=== PATIENT | male | born 1970 | race Caucasian/White ===

== ENCOUNTER 2020-01-14 15:12 | Inpatient (IN) ==
[2020-01-14 16:07] LABS: Basophils # 0.1 K/mcL (0.0-0.2); Basophils % 0.5 %; Eosinophils # 0.2 K/mcL (0.0-0.6); Eosinophils % 1.6 %; Hematocrit 38.2 % (37.5-50.1); Hemoglobin 12.4 g/dL (12.9-16.9); Immature Granulocytes % 0.4 % (0-4); Lymphocytes # 1.2 K/mcL (0.6-4.6); Lymphocytes % 11.5 %; Mean Corpuscular HGB Conc 32.5 g/dL (31.6-35.5); Mean Corpuscular Hemoglobin 30.7 pg (28.0-33.3); Mean Corpuscular Volume 94.6 fL (83.0-100.0); Mean Platelet Volume 10.5 fL (9.4-12.4); Monocytes # 1.4 K/mcL (0.0-1.3); Monocytes % 12.8 %; Neutrophils # 7.8 K/mcL (1.6-8.9); Platelet Count 198 K/mcL (140-400); Red Blood Count 4.04 M/mcL (4.19-5.50); Red Cell Distribution Width 12.2 % (11.5-14.5); Segmented Neutrophils % 73.2 %; White Blood Count 10.6 K/mcL (4.3-11.1)
[2020-01-14 16:18] LABS: Calcium 8.4 mg/dL (8.6-10.3); Potassium 4.7 mEq/L (3.5-5.1)
[2020-01-14] MEDS ORDERED: 0.9 % Sodium Chloride 1,000 ML IVC ONE (17:06)
[2020-01-14] MEDS ORDERED: Piperacillin/Tazobactam 3.375 GM in 0.9 % Sodium Chloride Mini Bag 100 ML IVPB ONE (17:15)
[2020-01-14] MEDS ORDERED: MOM Conc 10 ML UD.LIQ PO PRN (17:21)
[2020-01-14] MEDS ORDERED: *HR* HYDROcodone/Acet 5/325 mg TABLET PO PRN (17:21)
[2020-01-14] MEDS ORDERED: Naloxone 0.4 MG/ML INJ IVP PRN (17:21)
[2020-01-14] MEDS ORDERED: Ondansetron 4 MG/2 ML VIAL IVP PRN (17:21)
[2020-01-14] MEDS ORDERED: Acetaminophen 325 MG TABLET PO PRN (17:21)
[2020-01-14] MEDS ORDERED: Mag Hydrox/Al Hydrox/Simeth 30 ML UDC PO PRN (17:21)
[2020-01-14] MEDS ORDERED: *HR* Dextrose 50 % in Water (Syg) 50 ML SYRINGE IVP PRN (17:25)
[2020-01-14] MEDS ORDERED: Dextrose Gel 15 GM/37.5 ML TUBE PO PRN ×2 (17:25)
[2020-01-14] MEDS ORDERED: D5% in Water 1,000 ML IVC PRN (17:25)
[2020-01-14 18:21] LABS: Estimated Average Glucose 249 mg/dl
[2020-01-14] MEDS ORDERED: 0.9 % Sodium Chloride 1,000 ML IVC SCH (18:30)
[2020-01-14] MEDS: Insulin LISPRO 300 UNITS/3 ML VIAL SQ SCH (21:29)
[2020-01-14] MEDS: Insulin DETEMIR 100 UNIT/ML X5UNITS SQ SCH (21:29)
[2020-01-14] MEDS: diazePAM 10 MG TABLET PO PRN (21:36)
[2020-01-15] MEDS: Piperacillin/Tazobactam 3.375 GM in 0.9 % Sodium Chloride Mini Bag 100 ML IVPB SCH ×4 (00:43→23:40)
[2020-01-15] MEDS: *HR* OxyCODONE/APAP 5/325 TABLET PO PRN ×3 (04:09→20:01)
[2020-01-15] MEDS: *HR* Enoxaparin 30 MG/0.3 ML SYRINGE SQ SCH (05:30)
[2020-01-15] MEDS: Insulin LISPRO 300 UNITS/3 ML VIAL SQ SCH ×4 (07:50→20:11)
[2020-01-15] MEDS: Metoprolol XL (24 HR) Succ 50 MG TAB.ER.24H PO SCH (08:01)
[2020-01-15 08:07] LABS: Hematocrit 35.1 % (37.5-50.1); Hemoglobin 11.6 g/dL (12.9-16.9); Mean Corpuscular Volume 93.9 fL (83.0-100.0); Mean Platelet Volume 10.7 fL (9.4-12.4); Platelet Count 194 K/mcL (140-400); Red Blood Count 3.74 M/mcL (4.19-5.50); Red Cell Distribution Width 12.1 % (11.5-14.5); White Blood Count 9.8 K/mcL (4.3-11.1)
[2020-01-15] MEDS: diazePAM 10 MG TABLET PO PRN ×2 (08:09→20:01)
[2020-01-15] MEDS: Insulin DETEMIR 100 UNIT/ML X5UNITS SQ SCH (08:10)
[2020-01-15 08:25] LABS: Calcium 8.4 mg/dL (8.6-10.3); Potassium 4.2 mEq/L (3.5-5.1)
[2020-01-15] MEDS ORDERED: Ringers Solution, Lactated 1,000 ML IVC SCH (12:30)
[2020-01-15] MEDS ORDERED: Insulin DETEMIR 100 UNIT/ML X5UNITS SQ SCH (21:00)
[2020-01-16] MEDS: *HR* OxyCODONE/APAP 5/325 TABLET PO PRN ×3 (04:31→23:15)
[2020-01-16] MEDS: *HR* Enoxaparin 30 MG/0.3 ML SYRINGE SQ SCH (04:32)
[2020-01-16 07:22] LABS: Basophils % 0.3 %; Eosinophils # 0.3 K/mcL (0.0-0.6); Hematocrit 35.8 % (37.5-50.1); Hemoglobin 11.9 g/dL (12.9-16.9); Immature Granulocytes % 0.5 % (0-4); Lymphocytes # 1.8 K/mcL (0.6-4.6); Lymphocytes % 18.7 %; Mean Corpuscular HGB Conc 33.2 g/dL (31.6-35.5); Mean Corpuscular Hemoglobin 31.2 pg (28.0-33.3); Mean Platelet Volume 10.8 fL (9.4-12.4); Monocytes # 0.9 K/mcL (0.0-1.3); Monocytes % 9.9 %; Neutrophils # 6.3 K/mcL (1.6-8.9); Platelet Count 201 K/mcL (140-400); Red Blood Count 3.81 M/mcL (4.19-5.50); Red Cell Distribution Width 12.1 % (11.5-14.5); Segmented Neutrophils % 67.6 %; White Blood Count 9.4 K/mcL (4.3-11.1)
[2020-01-16 07:42] LABS: BUN/Creatinine Ratio 13 (6-26); Blood Urea Nitrogen 17 mg/dL (6-20); Calcium 8.7 mg/dL (8.6-10.3); Carbon Dioxide 30 mEq/L (23-29); Chloride 102 mEq/L (98-107); Glucose 121 mg/dL (70-105); Osmolality,Calculated 289 (280-300); Potassium 4.3 mEq/L (3.5-5.1); Sodium 138 mEq/L (136-145); eGFR For African Americans > 60 (> 60); eGFR For Non-African Americans 56 (> 60)
[2020-01-16] MEDS: Insulin LISPRO 300 UNITS/3 ML VIAL SQ SCH ×4 (08:41→21:03)
[2020-01-16] MEDS: Piperacillin/Tazobactam 3.375 GM in 0.9 % Sodium Chloride Mini Bag 100 ML IVPB SCH (08:46)
[2020-01-16] MEDS: diazePAM 10 MG TABLET PO PRN ×2 (08:47→21:03)
[2020-01-16] MEDS: Metoprolol XL (24 HR) Succ 50 MG TAB.ER.24H PO SCH (08:47)
[2020-01-16] MEDS: Lisinopril-HCTZ 20-12.5mg TABLET PO SCH (08:47)
[2020-01-16] MEDS ORDERED: Aminoglycoside Consult 1 EACH MC ONE (09:44)
[2020-01-16] MEDS: ceFAZolin 1,000 MG in Water for inj. (sterile) 10 ML IVP SCH ×2 (16:33→23:33)
[2020-01-17 01:47] LABS: Basophils # 0.1 K/mcL (0.0-0.2); Basophils % 0.6 %; Eosinophils # 0.2 K/mcL (0.0-0.6); Eosinophils % 2.4 %; Hematocrit 37.7 % (37.5-50.1); Hemoglobin 12.3 g/dL (12.9-16.9); Immature Granulocytes % 0.5 % (0-4); Lymphocytes # 2.2 K/mcL (0.6-4.6); Lymphocytes % 22.2 %; Mean Corpuscular HGB Conc 32.6 g/dL (31.6-35.5); Mean Corpuscular Hemoglobin 30.7 pg (28.0-33.3); Mean Platelet Volume 10.3 fL (9.4-12.4); Monocytes # 0.9 K/mcL (0.0-1.3); Monocytes % 8.9 %; Neutrophils # 6.3 K/mcL (1.6-8.9); Platelet Count 226 K/mcL (140-400); Red Blood Count 4.01 M/mcL (4.19-5.50); Red Cell Distribution Width 11.9 % (11.5-14.5); Segmented Neutrophils % 65.4 %; White Blood Count 9.7 K/mcL (4.3-11.1)
[2020-01-17 01:51] LABS: INR 1.2
[2020-01-17 02:08] LABS: BUN/Creatinine Ratio 12 (6-26); Blood Urea Nitrogen 18 mg/dL (6-20); Calcium 9.1 mg/dL (8.6-10.3); Carbon Dioxide 33 mEq/L (23-29); Chloride 100 mEq/L (98-107); Glucose 146 mg/dL (70-105); Osmolality,Calculated 293 (280-300); Potassium 4.4 mEq/L (3.5-5.1); Sodium 139 mEq/L (136-145); eGFR For African Americans > 60 (> 60); eGFR For Non-African Americans 50 (> 60)
[2020-01-17] MEDS: *HR* Enoxaparin 30 MG/0.3 ML SYRINGE SQ SCH (05:08)
[2020-01-17] MEDS: *HR* OxyCODONE/APAP 5/325 TABLET PO PRN ×2 (05:17→11:18)
[2020-01-17] MEDS: Metoprolol XL (24 HR) Succ 50 MG TAB.ER.24H PO SCH (07:52)
[2020-01-17] MEDS: Lisinopril-HCTZ 20-12.5mg TABLET PO SCH (07:52)
[2020-01-17] MEDS: Insulin LISPRO 300 UNITS/3 ML VIAL SQ SCH ×4 (07:53→21:28)
[2020-01-17] MEDS: ceFAZolin 1,000 MG in Water for inj. (sterile) 10 ML IVP SCH (08:02)
[2020-01-17] MEDS: ceFAZolin 2,000 MG in 0.9 % Sodium Chloride 100 ML IVPB SCH (15:15)
[2020-01-17] MEDS: diazePAM 10 MG TABLET PO PRN ×2 (15:15→21:30)
[2020-01-18] MEDS: ceFAZolin 2,000 MG in 0.9 % Sodium Chloride 100 ML IVPB SCH ×3 (00:59→16:55)
[2020-01-18] MEDS ORDERED: *HR* Enoxaparin 40 MG/0.4 ML SYRINGE SQ SCH (06:00)
[2020-01-18 06:17] LABS: Basophils # 0.1 K/mcL (0.0-0.2); Basophils % 0.5 %; Eosinophils # 0.3 K/mcL (0.0-0.6); Eosinophils % 2.7 %; Hematocrit 37.1 % (37.5-50.1); Hemoglobin 12.5 g/dL (12.9-16.9); Immature Granulocytes % 0.6 % (0-4); Lymphocytes # 2.2 K/mcL (0.6-4.6); Lymphocytes % 20.6 %; Mean Corpuscular HGB Conc 33.7 g/dL (31.6-35.5); Mean Corpuscular Hemoglobin 31.1 pg (28.0-33.3); Mean Corpuscular Volume 92.3 fL (83.0-100.0); Mean Platelet Volume 10.2 fL (9.4-12.4); Monocytes % 9.5 %; Platelet Count 227 K/mcL (140-400); Red Blood Count 4.02 M/mcL (4.19-5.50); Red Cell Distribution Width 11.8 % (11.5-14.5); Segmented Neutrophils % 66.1 %; White Blood Count 10.6 K/mcL (4.3-11.1)
[2020-01-18 06:49] LABS: BUN/Creatinine Ratio 15 (6-26); Blood Urea Nitrogen 21 mg/dL (6-20); Calcium 8.9 mg/dL (8.6-10.3); Carbon Dioxide 31 mEq/L (23-29); Chloride 97 mEq/L (98-107); Glucose 139 mg/dL (70-105); Osmolality,Calculated 287 (280-300); Potassium 4.4 mEq/L (3.5-5.1); Sodium 136 mEq/L (136-145); eGFR For African Americans > 60 (> 60); eGFR For Non-African Americans 53 (> 60)
[2020-01-18] MEDS: Metoprolol XL (24 HR) Succ 50 MG TAB.ER.24H PO SCH (07:27)
[2020-01-18] MEDS: Lisinopril-HCTZ 20-12.5mg TABLET PO SCH (07:27)
[2020-01-18] MEDS: Insulin LISPRO 300 UNITS/3 ML VIAL SQ SCH ×2 (07:31→16:56)
[2020-01-18] MEDS: *HR* OxyCODONE/APAP 5/325 TABLET PO PRN ×2 (07:32→21:15)
[2020-01-18 08:28] LABS: C-Reactive Protein 144 mg/L (Less than 10)
[2020-01-18] MEDS ORDERED: *HR* Propofol 200 MG/20 ML VIAL IVP ONE ×2 (11:26→12:16)
[2020-01-18] MEDS ORDERED: Lidocaine -MPF 2% 2 ML VIAL ONE (11:26)
[2020-01-18] MEDS ORDERED: Bupivacaine/Clonidine Syringe 20 ML, Syringe LUER-LOK 1 EACH TP ONE (12:00)
[2020-01-18] MEDS ORDERED: Mag Hydrox/Al Hydrox/Simeth 30 ML UDC PO PRN (13:13)
[2020-01-18] MEDS ORDERED: *HR* HYDROcodone/Acet 5/325 mg TABLET PO PRN (13:13)
[2020-01-18] MEDS ORDERED: MOM Conc 10 ML UD.LIQ PO PRN (13:13)
[2020-01-18] MEDS ORDERED: Acetaminophen 325 MG TABLET PO PRN (13:13)
[2020-01-18] MEDS ORDERED: *HR* Dextrose 50 % in Water (Syg) 50 ML SYRINGE IVP PRN (13:13)
[2020-01-18] MEDS ORDERED: Naloxone 0.4 MG/ML INJ IVP PRN (13:13)
[2020-01-18] MEDS ORDERED: Dextrose Gel 15 GM/37.5 ML TUBE PO PRN ×2 (13:13)
[2020-01-18] MEDS ORDERED: Ondansetron 4 MG/2 ML VIAL IVP PRN (13:13)
[2020-01-18] MEDS ORDERED: D5% in Water 1,000 ML IVC PRN (13:13)
[2020-01-18] MEDS: diazePAM 10 MG TABLET PO PRN (21:18)
[2020-01-19] MEDS: Insulin LISPRO 300 UNITS/3 ML VIAL SQ SCH ×5 (00:08→20:28)
[2020-01-19] MEDS: ceFAZolin 2,000 MG in 0.9 % Sodium Chloride 100 ML IVPB SCH ×3 (00:09→15:55)
[2020-01-19 01:15] LABS: Basophils % 0.4 %; Eosinophils # 0.3 K/mcL (0.0-0.6); Hemoglobin 12.1 g/dL (12.9-16.9); Immature Granulocytes % 0.8 % (0-4); Lymphocytes # 1.9 K/mcL (0.6-4.6); Lymphocytes % 19.9 %; Mean Corpuscular HGB Conc 32.7 g/dL (31.6-35.5); Mean Corpuscular Hemoglobin 30.1 pg (28.0-33.3); Mean Platelet Volume 10.5 fL (9.4-12.4); Monocytes # 0.8 K/mcL (0.0-1.3); Monocytes % 7.8 %; Neutrophils # 6.7 K/mcL (1.6-8.9); Platelet Count 257 K/mcL (140-400); Red Blood Count 4.02 M/mcL (4.19-5.50); Red Cell Distribution Width 11.6 % (11.5-14.5); Segmented Neutrophils % 68.1 %; White Blood Count 9.8 K/mcL (4.3-11.1)
[2020-01-19 01:34] LABS: Calcium 8.5 mg/dL (8.6-10.3)
[2020-01-19] MEDS: *HR* Enoxaparin 40 MG/0.4 ML SYRINGE SQ SCH (06:27)
[2020-01-19] MEDS: *HR* OxyCODONE/APAP 5/325 TABLET PO PRN ×2 (08:23→16:01)
[2020-01-19] MEDS: Lisinopril-HCTZ 20-12.5mg TABLET PO SCH (08:23)
[2020-01-19] MEDS: Metoprolol XL (24 HR) Succ 50 MG TAB.ER.24H PO SCH (08:24)
[2020-01-19] MEDS: diazePAM 10 MG TABLET PO PRN ×2 (11:46→21:19)
[2020-01-19] MEDS: metroNIDAZOLE 500 MG TABLET PO SCH ×2 (15:55→20:28)
[2020-01-19] MEDS ORDERED: Insulin DETEMIR 100 UNIT/ML X5UNITS SQ SCH (21:00)
[2020-01-20] MEDS: ceFAZolin 2,000 MG in 0.9 % Sodium Chloride 100 ML IVPB SCH ×3 (00:09→15:12)
[2020-01-20 05:21] LABS: BUN/Creatinine Ratio 18 (6-26); Blood Urea Nitrogen 25 mg/dL (6-20); Calcium 8.8 mg/dL (8.6-10.3); Carbon Dioxide 33 mEq/L (23-29); Chloride 99 mEq/L (98-107); Glucose 193 mg/dL (70-105); Osmolality,Calculated 294 (280-300); Sodium 137 mEq/L (136-145); eGFR For African Americans > 60 (> 60); eGFR For Non-African Americans 54 (> 60)
[2020-01-20] MEDS: *HR* Enoxaparin 40 MG/0.4 ML SYRINGE SQ SCH (05:23)
[2020-01-20] MEDS: *HR* OxyCODONE/APAP 5/325 TABLET PO PRN ×2 (05:24→07:48)
[2020-01-20] MEDS: metroNIDAZOLE 500 MG TABLET PO SCH ×3 (07:34→20:41)
[2020-01-20] MEDS: Insulin LISPRO 300 UNITS/3 ML VIAL SQ SCH ×4 (07:34→20:13)
[2020-01-20] MEDS: Lisinopril-HCTZ 20-12.5mg TABLET PO SCH (07:34)
[2020-01-20] MEDS: Metoprolol XL (24 HR) Succ 50 MG TAB.ER.24H PO SCH (07:35)
[2020-01-20] MEDS: diazePAM 10 MG TABLET PO PRN ×2 (07:39→19:32)
[2020-01-20] MEDS: *HR* OxyCODONE/APAP 10/325 TABLET PO PRN (17:05)
[2020-01-20] MEDS ORDERED: Insulin DETEMIR 100 UNIT/ML X5UNITS SQ SCH (21:00)
[2020-01-21] MEDS: ceFAZolin 2,000 MG in 0.9 % Sodium Chloride 100 ML IVPB SCH ×2 (00:15→07:49)
[2020-01-21] MEDS: *HR* OxyCODONE/APAP 10/325 TABLET PO PRN (03:22)
[2020-01-21 05:13] LABS: BUN/Creatinine Ratio 25 (6-26); Blood Urea Nitrogen 35 mg/dL (6-20); Calcium 8.7 mg/dL (8.6-10.3); Carbon Dioxide 32 mEq/L (23-29); Chloride 99 mEq/L (98-107); Glucose 160 mg/dL (70-105); Osmolality,Calculated 295 (280-300); Sodium 137 mEq/L (136-145); eGFR For African Americans > 60 (> 60); eGFR For Non-African Americans 54 (> 60)
[2020-01-21] MEDS: *HR* Enoxaparin 40 MG/0.4 ML SYRINGE SQ SCH (06:04)
[2020-01-21 06:36] VITALS: BP 125/76
[2020-01-21] MEDS: Metoprolol XL (24 HR) Succ 50 MG TAB.ER.24H PO SCH (07:49)
[2020-01-21] MEDS: Lisinopril-HCTZ 20-12.5mg TABLET PO SCH (07:49)
[2020-01-21] MEDS: metroNIDAZOLE 500 MG TABLET PO SCH (07:49)
[2020-01-21] MEDS: Insulin LISPRO 300 UNITS/3 ML VIAL SQ SCH (07:49)
[2020-01-21] MEDS: diazePAM 10 MG TABLET PO PRN (08:03)
[2020-01-21] MEDS ORDERED: *HR* OxyCODONE/APAP 10/325 TABLET PO PRN (10:02)
== END 2020-01-21 11:59 | disposition home health service (06) | DRG 623 ==
LOC: EMEROOARM 15:12 → 3ANU 15:12 → SUATTDRO 17:24 → 3ANU 17:49
PROVIDERS: ADMIT Student in an Organized Health Care Education/Training Program; ATTEND Internal Medicine

== ENCOUNTER 2021-02-27 13:34 | Inpatient (IN) ==
[2021-02-27] MEDS ORDERED: Piperacillin/Tazobactam 3.375 GM in Water for inj. (sterile) 20 ML IVP ONE (14:13)
[2021-02-27] MEDS ORDERED: Ondansetron 4 MG/2 ML VIAL IVP ONE (14:13)
[2021-02-27] MEDS ORDERED: 0.9 % Sodium Chloride 1,000 ML IVC ONE (14:13)
[2021-02-27] MEDS ORDERED: Morphine Sulfate 2 MG/ML SYRINGE IVP ONE (14:13)
[2021-02-27] MEDS ORDERED: Vancomycin 1,500 MG/265 ML IV.SOLN IVPB ONE (14:13)
[2021-02-27 14:38] LABS: Basophils % 0.4 %; Eosinophils # 0.3 K/mcL (0.0-0.6); Eosinophils % 2.4 %; Hematocrit 39.6 % (37.5-50.1); Immature Granulocytes % 0.4 % (0-4); Lymphocytes # 1.8 K/mcL (0.6-4.6); Mean Corpuscular HGB Conc 32.8 g/dL (31.6-35.5); Mean Corpuscular Hemoglobin 30.2 pg (28.0-33.3); Mean Corpuscular Volume 92.1 fL (83.0-100.0); Mean Platelet Volume 10.7 fL (9.4-12.4); Monocytes % 9.1 %; Platelet Count 207 K/mcL (140-400); Red Cell Distribution Width 12.4 % (11.5-14.5); Segmented Neutrophils % 71.7 %; White Blood Count 11.2 K/mcL (4.3-11.1)
[2021-02-27 14:57] LABS: Albumin 3.7 g/dL (3.5-5.7); Albumin/Globulin Ratio 1.1 (1.1-2.2); Bilirubin,Total 0.3 mg/dL (0.3-1.0); Calcium 8.9 mg/dL (8.6-10.3); Globulin 3.5 g/dL (2.4-3.5); Potassium 4.4 mEq/L (3.5-5.1); Total Protein 7.2 g/dL (6.4-8.9)
[2021-02-27] MEDS ORDERED: diazePAM 5 MG TABLET PO ONE (15:28)
[2021-02-27] MEDS ORDERED: Ondansetron ODT 4 MG TAB.RAPDIS SL PRN (15:59)
[2021-02-27] MEDS ORDERED: Dextrose Gel 15 GM/37.5 ML TUBE PO PRN ×2 (15:59)
[2021-02-27] MEDS ORDERED: *HR* Dextrose 50 % in Water (Vial) 50 ML VIAL IVP PRN (15:59)
[2021-02-27] MEDS ORDERED: Naloxone 0.4 MG/ML INJ IVP PRN (15:59)
[2021-02-27] MEDS ORDERED: Mag Hydrox/Al Hydrox/Simeth 30 ML UDC PO PRN (15:59)
[2021-02-27] MEDS ORDERED: Acetaminophen 325 MG TABLET PO PRN (15:59)
[2021-02-27] MEDS ORDERED: MOM Conc 10 ML UD.LIQ PO PRN (15:59)
[2021-02-27] MEDS ORDERED: D5% in Water 1,000 ML IVC PRN (15:59)
[2021-02-27] MEDS: Insulin LISPRO 300 UNITS/3 ML VIAL SUBQ SCH ×2 (18:37→20:32)
[2021-02-27] MEDS ORDERED: Nitroglycerin 0.4 MG TAB.SUBL SL PRN (21:32)
[2021-02-27] MEDS: diazePAM 10 MG TABLET PO PRN (22:19)
[2021-02-28] MEDS: Piperacillin/Tazobactam 3.375 GM in 0.9 % Sodium Chloride Mini Bag 100 ML IVPB SCH ×4 (00:10→23:16)
[2021-02-28 05:15] LABS: Hemoglobin 12.3 g/dL (12.9-16.9); Mean Corpuscular HGB Conc 34.2 g/dL (31.6-35.5); Mean Corpuscular Hemoglobin 31.2 pg (28.0-33.3); Mean Corpuscular Volume 91.4 fL (83.0-100.0); Mean Platelet Volume 10.9 fL (9.4-12.4); Platelet Count 179 K/mcL (140-400); Red Blood Count 3.94 M/mcL (4.19-5.50); Red Cell Distribution Width 12.2 % (11.5-14.5); White Blood Count 6.8 K/mcL (4.3-11.1)
[2021-02-28 05:36] LABS: Calcium 8.5 mg/dL (8.6-10.3); Magnesium 1.8 mg/dL (1.6-2.6); Potassium 3.9 mEq/L (3.5-5.1)
[2021-02-28] MEDS: *HR* Enoxaparin 40 MG/0.4 ML SYRINGE SQ SCH (06:18)
[2021-02-28] MEDS: Insulin LISPRO 300 UNITS/3 ML VIAL SUBQ SCH ×4 (08:00→21:24)
[2021-02-28] MEDS: Gabapentin 300 MG CAPSULE PO SCH ×2 (08:06→21:20)
[2021-02-28] MEDS: Aspirin Enteric Coated 81 MG Tablet PO SCH (08:06)
[2021-02-28] MEDS: Metoprolol XL (24 HR) Succ 50 MG TAB.ER.24H PO SCH (08:06)
[2021-02-28] MEDS: diazePAM 10 MG TABLET PO PRN ×2 (10:39→17:34)
[2021-02-28 11:54] LABS: Estimated Average Glucose 269 mg/dl
[2021-02-28] MEDS ORDERED: Vancomycin 1,500 MG/265 ML IV.SOLN IVPB SCH (15:00)
[2021-03-01 02:23] LABS: Adenovirus Not Detected (Not Detect); Coronavirus 229E Not Detected (Not Detect); Coronavirus HKU1 Not Detected (Not Detect); Coronavirus NL63 Not Detected (Not Detect); Coronavirus OC43 Not Detected (Not Detect); Human Metapneumovirus Not Detected (Not Detect); Human Rhinovirus/Enterovirus Not Detected (Not Detect); Influenza A Subtype 2009 H1 Not Detected (Not Detect); Influenza B Not Detected (Not Detect); Parainfluenza Virus 1 Not Detected (Not Detect); Parainfluenza Virus 2 Not Detected (Not Detect); Parainfluenza Virus 3 Not Detected (Not Detect); Parainfluenza Virus 4 Not Detected (Not Detect); Respiratory Syncytial Virus Not Detected (Not Detect); SARS-CoV-2 Not Detected (Not Detect)
[2021-03-01 02:24] LABS: Bordetella Pertussis Not Detected (Not Detect); Chlamydophila pneumoniae Not Detected (Not Detect); Mycoplasma pneumoniae Not Detected (Not Detect)
[2021-03-01 05:29] LABS: Basophils % 0.4 %; Eosinophils # 0.3 K/mcL (0.0-0.6); Eosinophils % 3.8 %; Hematocrit 35.2 % (37.5-50.1); Immature Granulocytes % 0.3 % (0-4); Lymphocytes # 2.1 K/mcL (0.6-4.6); Mean Corpuscular HGB Conc 34.1 g/dL (31.6-35.5); Mean Corpuscular Hemoglobin 31.1 pg (28.0-33.3); Mean Corpuscular Volume 91.2 fL (83.0-100.0); Mean Platelet Volume 10.8 fL (9.4-12.4); Monocytes # 0.6 K/mcL (0.0-1.3); Monocytes % 8.5 %; Neutrophils # 3.9 K/mcL (1.6-8.9); Platelet Count 191 K/mcL (140-400); Red Blood Count 3.86 M/mcL (4.19-5.50); Red Cell Distribution Width 12.1 % (11.5-14.5); White Blood Count 6.9 K/mcL (4.3-11.1)
[2021-03-01 05:50] LABS: Calcium 8.6 mg/dL (8.6-10.3); Potassium 4.1 mEq/L (3.5-5.1)
[2021-03-01] MEDS: Piperacillin/Tazobactam 3.375 GM in 0.9 % Sodium Chloride Mini Bag 100 ML IVPB SCH ×3 (08:20→23:32)
[2021-03-01] MEDS: Metoprolol XL (24 HR) Succ 50 MG TAB.ER.24H PO SCH (08:23)
[2021-03-01] MEDS: Aspirin Enteric Coated 81 MG Tablet PO SCH (08:23)
[2021-03-01] MEDS: Gabapentin 300 MG CAPSULE PO SCH ×2 (08:23→21:12)
[2021-03-01] MEDS: Insulin LISPRO 300 UNITS/3 ML VIAL SUBQ SCH ×3 (08:25→21:19)
[2021-03-01] MEDS ORDERED: Bupivacaine/Clonidine Syringe 20 ML, Syringe LUER-LOK 1 EACH TP ONE (12:10)
[2021-03-01] MEDS ORDERED: *HR* Propofol 200 MG/20 ML VIAL IVP ONE (12:41)
[2021-03-01] MEDS ORDERED: *HR* Midazolam HCl 2 MG/2 ML VIAL ONE (12:41)
[2021-03-01] MEDS ORDERED: Lidocaine -MPF 2% 2 ML VIAL ONE (12:41)
[2021-03-01] MEDS ORDERED: *HR* FentaNYL (PF) 100 MCG/2 ML VIAL ONE (12:41)
[2021-03-01] MEDS ORDERED: Ondansetron 4 MG/2 ML VIAL ONE (13:27)
[2021-03-01] MEDS ORDERED: *HR* Dextrose 50 % in Water (Vial) 50 ML VIAL IVP PRN ×2 (14:03→14:10)
[2021-03-01] MEDS ORDERED: MOM Conc 10 ML UD.LIQ PO PRN ×2 (14:03→14:10)
[2021-03-01] MEDS ORDERED: Mag Hydrox/Al Hydrox/Simeth 30 ML UDC PO PRN ×2 (14:03→14:10)
[2021-03-01] MEDS ORDERED: Ondansetron ODT 4 MG TAB.RAPDIS SL PRN ×2 (14:03→14:10)
[2021-03-01] MEDS ORDERED: Naloxone 0.4 MG/ML INJ IVP PRN ×2 (14:03→14:10)
[2021-03-01] MEDS ORDERED: Dextrose Gel 15 GM/37.5 ML TUBE PO PRN ×4 (14:03→14:10)
[2021-03-01] MEDS ORDERED: D5% in Water 1,000 ML IVC PRN ×2 (14:03→14:10)
[2021-03-01] MEDS ORDERED: Nitroglycerin 0.4 MG TAB.SUBL SL PRN ×2 (14:03→14:10)
[2021-03-01] MEDS ORDERED: Acetaminophen 325 MG TABLET PO PRN (14:03)
[2021-03-01] MEDS ORDERED: diazePAM 10 MG TABLET PO PRN (14:03)
[2021-03-01] MEDS ORDERED: Piperacillin/Tazobactam 3.375 GM in 0.9 % Sodium Chloride Mini Bag 100 ML IVPB SCH (15:00)
[2021-03-01] MEDS ORDERED: Vancomycin 1,500 MG/265 ML IV.SOLN IVPB SCH ×2 (15:00)
[2021-03-01] MEDS: diazePAM 10 MG TABLET PO PRN (16:10)
[2021-03-01] MEDS ORDERED: Insulin LISPRO 300 UNITS/3 ML VIAL SUBQ SCH ×2 (16:30→21:00)
[2021-03-01] MEDS: Vancomycin 1,750 MG/517.5 ML IV.SOLN IVPB SCH (16:55)
[2021-03-01] MEDS ORDERED: Gabapentin 300 MG CAPSULE PO SCH (21:00)
[2021-03-01] MEDS: Insulin DETEMIR 100 UNIT/ML X5UNITS SUBQ SCH (21:15)
[2021-03-02] MEDS: diazePAM 10 MG TABLET PO PRN ×3 (00:22→21:56)
[2021-03-02] MEDS ORDERED: *HR* Enoxaparin 40 MG/0.4 ML SYRINGE SQ SCH (07:00)
[2021-03-02 07:23] LABS: Basophils % 0.3 %; Eosinophils # 0.2 K/mcL (0.0-0.6); Eosinophils % 1.9 %; Hematocrit 37.7 % (37.5-50.1); Hemoglobin 12.6 g/dL (12.9-16.9); Immature Granulocytes % 0.4 % (0-4); Lymphocytes # 2.2 K/mcL (0.6-4.6); Lymphocytes % 20.6 %; Mean Corpuscular HGB Conc 33.4 g/dL (31.6-35.5); Mean Corpuscular Hemoglobin 30.1 pg (28.0-33.3); Mean Corpuscular Volume 90.2 fL (83.0-100.0); Mean Platelet Volume 10.4 fL (9.4-12.4); Monocytes # 0.8 K/mcL (0.0-1.3); Monocytes % 7.2 %; Neutrophils # 7.5 K/mcL (1.6-8.9); Platelet Count 213 K/mcL (140-400); Red Blood Count 4.18 M/mcL (4.19-5.50); Red Cell Distribution Width 11.8 % (11.5-14.5); Segmented Neutrophils % 69.6 %
[2021-03-02 07:24] LABS: White Blood Count 10.8 K/mcL (4.3-11.1)
[2021-03-02] MEDS: Piperacillin/Tazobactam 3.375 GM in 0.9 % Sodium Chloride Mini Bag 100 ML IVPB SCH ×3 (07:36→21:57)
[2021-03-02 07:37] LABS: Prothrombin Time 12.1 Seconds (9.4-12.1)
[2021-03-02] MEDS: *HR* Enoxaparin 40 MG/0.4 ML SYRINGE SQ SCH ×2 (07:37→15:47)
[2021-03-02 07:39] LABS: Activated Partial Thrombo Time 28.4 Seconds (26.0-36.0)
[2021-03-02] MEDS: Insulin LISPRO 300 UNITS/3 ML VIAL SUBQ SCH ×5 (07:39→22:16)
[2021-03-02 07:44] LABS: BUN/Creatinine Ratio 15 (6-26); Blood Urea Nitrogen 22 mg/dL (6-20); Calcium 8.9 mg/dL (8.6-10.3); Carbon Dioxide 32 mEq/L (23-29); Chloride 102 mEq/L (98-107); Glucose 170 mg/dL (70-105); Osmolality,Calculated 297 (280-300); Potassium 4.1 mEq/L (3.5-5.1); Sodium 140 mEq/L (136-145); eGFR For African Americans > 60 (> 60); eGFR For Non-African Americans 50 (> 60)
[2021-03-02] MEDS: Aspirin Enteric Coated 81 MG Tablet PO SCH (08:08)
[2021-03-02] MEDS: Gabapentin 300 MG CAPSULE PO SCH ×2 (08:11→21:56)
[2021-03-02] MEDS: Insulin DETEMIR 100 UNIT/ML X5UNITS SUBQ SCH ×2 (08:12→21:56)
[2021-03-02] MEDS: Metoprolol XL (24 HR) Succ 50 MG TAB.ER.24H PO SCH (08:12)
[2021-03-02] MEDS ORDERED: Metoprolol XL (24 HR) Succ 50 MG TAB.ER.24H PO SCH (09:00)
[2021-03-02] MEDS ORDERED: Aspirin Enteric Coated 81 MG Tablet PO SCH (09:00)
[2021-03-02] MEDS: 0.9 % Sodium Chloride 1,000 ML IVC SCH ×3 (09:15→22:13)
[2021-03-02] MEDS ORDERED: *HR* Heparin 10,000 UNIT/10 ML VIAL ONE (13:58)
[2021-03-02] MEDS ORDERED: *HR* Midazolam HCl 2 MG/2 ML VIAL ONE (13:58)
[2021-03-02] MEDS ORDERED: *HR* FentaNYL (PF) 100 MCG/2 ML VIAL ONE (13:58)
[2021-03-02] MEDS ORDERED: Isovue-300 200 mL Infus..BTL ONE (13:59)
[2021-03-02] MEDS ORDERED: Heparin 1,000 UNITS/500 mL 500 ML ONE (13:59)
[2021-03-02] MEDS ORDERED: 0.9 % Sodium Chloride 2,000 ML ONE (13:59)
[2021-03-02] MEDS ORDERED: Ondansetron 4 MG/2 ML VIAL IVP PRN (15:38)
[2021-03-02] MEDS ORDERED: *HR* HYDROcodone/Acet 5/325 mg TABLET PO PRN (15:38)
[2021-03-02] MEDS: Vancomycin 1,750 MG/517.5 ML IV.SOLN IVPB SCH (16:11)
[2021-03-02] MEDS ORDERED: *HR* Atropine Sulfate 1 MG/10 ML SYRINGE ONE (17:58)
[2021-03-03 01:36] LABS: Basophils % 0.5 %; Eosinophils # 0.3 K/mcL (0.0-0.6); Eosinophils % 3.2 %; Hematocrit 38.3 % (37.5-50.1); Immature Granulocytes % 0.4 % (0-4); Lymphocytes # 2.1 K/mcL (0.6-4.6); Lymphocytes % 24.8 %; Mean Corpuscular HGB Conc 33.9 g/dL (31.6-35.5); Mean Corpuscular Hemoglobin 30.9 pg (28.0-33.3); Mean Platelet Volume 10.7 fL (9.4-12.4); Monocytes # 0.6 K/mcL (0.0-1.3); Monocytes % 6.9 %; Neutrophils # 5.5 K/mcL (1.6-8.9); Platelet Count 192 K/mcL (140-400); Red Blood Count 4.21 M/mcL (4.19-5.50); Red Cell Distribution Width 12.2 % (11.5-14.5); Segmented Neutrophils % 64.2 %; White Blood Count 8.6 K/mcL (4.3-11.1)
[2021-03-03 01:57] LABS: BUN/Creatinine Ratio 15 (6-26); Blood Urea Nitrogen 18 mg/dL (6-20); Calcium 8.5 mg/dL (8.6-10.3); Carbon Dioxide 27 mEq/L (23-29); Chloride 106 mEq/L (98-107); Glucose 212 mg/dL (70-105); Osmolality,Calculated 298 (280-300); Potassium 3.7 mEq/L (3.5-5.1); Sodium 140 mEq/L (136-145); eGFR For African Americans > 60 (> 60); eGFR For Non-African Americans > 60 (> 60)
[2021-03-03] MEDS: *HR* Enoxaparin 40 MG/0.4 ML SYRINGE SQ SCH (06:11)
[2021-03-03] MEDS: Piperacillin/Tazobactam 3.375 GM in 0.9 % Sodium Chloride Mini Bag 100 ML IVPB SCH (06:13)
[2021-03-03] MEDS: Aspirin Enteric Coated 81 MG Tablet PO SCH (08:43)
[2021-03-03] MEDS: Gabapentin 300 MG CAPSULE PO SCH ×2 (08:44→20:16)
[2021-03-03] MEDS: Metoprolol XL (24 HR) Succ 50 MG TAB.ER.24H PO SCH (08:44)
[2021-03-03] MEDS: Insulin LISPRO 300 UNITS/3 ML VIAL SUBQ SCH ×4 (08:49→20:21)
[2021-03-03] MEDS: Insulin DETEMIR 100 UNIT/ML X5UNITS SUBQ SCH ×2 (08:49→20:16)
[2021-03-03] MEDS: diazePAM 10 MG TABLET PO PRN ×2 (11:26→20:16)
[2021-03-03] MEDS: 0.9 % Sodium Chloride 1,000 ML IVC SCH ×2 (11:28→18:04)
[2021-03-03] MEDS: MetroNIDAZOLE 500 MG/100 ML 500 MG/100 ML BAG IVPB SCH ×2 (16:27→23:01)
[2021-03-03] MEDS: Vancomycin 1,500 MG/265 ML IV.SOLN IVPB SCH (18:05)
[2021-03-03] MEDS: Vancomycin 1,750 MG/517.5 ML IV.SOLN IVPB SCH (19:51)
[2021-03-03] MEDS: cilostazoL 100 MG TABLET PO SCH (20:16)
[2021-03-04] MEDS: Vancomycin 1,500 MG/265 ML IV.SOLN IVPB SCH (04:38)
[2021-03-04 06:05] LABS: Basophils % 0.5 %; Eosinophils # 0.2 K/mcL (0.0-0.6); Eosinophils % 3.1 %; Hematocrit 31.7 % (37.5-50.1); Immature Granulocytes % 0.3 % (0-4); Lymphocytes # 2.6 K/mcL (0.6-4.6); Lymphocytes % 34.2 %; Mean Corpuscular HGB Conc 32.8 g/dL (31.6-35.5); Mean Corpuscular Volume 91.4 fL (83.0-100.0); Mean Platelet Volume 10.3 fL (9.4-12.4); Monocytes # 0.6 K/mcL (0.0-1.3); Monocytes % 8.6 %; Platelet Count 173 K/mcL (140-400); Red Blood Count 3.47 M/mcL (4.19-5.50); Red Cell Distribution Width 12.3 % (11.5-14.5); Segmented Neutrophils % 53.3 %; White Blood Count 7.5 K/mcL (4.3-11.1)
[2021-03-04 06:07] LABS: Hemoglobin 10.4 g/dL (12.9-16.9)
[2021-03-04] MEDS: *HR* Enoxaparin 40 MG/0.4 ML SYRINGE SQ SCH (06:08)
[2021-03-04 06:24] LABS: BUN/Creatinine Ratio 14 (6-26); Blood Urea Nitrogen 17 mg/dL (6-20); Calcium 8.2 mg/dL (8.6-10.3); Carbon Dioxide 29 mEq/L (23-29); Chloride 107 mEq/L (98-107); Glucose 92 mg/dL (70-105); Osmolality,Calculated 287 (280-300); Potassium 3.7 mEq/L (3.5-5.1); Sodium 138 mEq/L (136-145); eGFR For African Americans > 60 (> 60); eGFR For Non-African Americans > 60 (> 60)
[2021-03-04] MEDS: 0.9 % Sodium Chloride 1,000 ML IVC SCH ×3 (06:28→17:13)
[2021-03-04] MEDS: Insulin LISPRO 300 UNITS/3 ML VIAL SUBQ SCH ×4 (08:32→20:18)
[2021-03-04] MEDS: cilostazoL 100 MG TABLET PO SCH ×2 (08:42→20:27)
[2021-03-04] MEDS: MetroNIDAZOLE 500 MG/100 ML 500 MG/100 ML BAG IVPB SCH ×2 (08:42→15:20)
[2021-03-04] MEDS: diazePAM 10 MG TABLET PO PRN ×2 (08:42→17:14)
[2021-03-04] MEDS: Gabapentin 300 MG CAPSULE PO SCH ×2 (08:42→20:27)
[2021-03-04] MEDS: Insulin DETEMIR 100 UNIT/ML X5UNITS SUBQ SCH ×2 (08:42→20:27)
[2021-03-04] MEDS: Metoprolol XL (24 HR) Succ 50 MG TAB.ER.24H PO SCH (08:42)
[2021-03-04] MEDS: Aspirin Enteric Coated 81 MG Tablet PO SCH (08:42)
[2021-03-04] MEDS: Acetaminophen 325 MG TABLET PO PRN (20:29)
[2021-03-05] MEDS: diazePAM 10 MG TABLET PO PRN (01:20)
[2021-03-05] MEDS: 0.9 % Sodium Chloride 1,000 ML IVC SCH ×2 (03:05→07:29)
[2021-03-05] MEDS: Acetaminophen 325 MG TABLET PO PRN (04:06)
[2021-03-05 05:30] LABS: Basophils % 0.4 %; Eosinophils # 0.3 K/mcL (0.0-0.6); Eosinophils % 4.1 %; Hematocrit 31.1 % (37.5-50.1); Hemoglobin 10.5 g/dL (12.9-16.9); Immature Granulocytes % 0.4 % (0-4); Lymphocytes # 1.8 K/mcL (0.6-4.6); Lymphocytes % 24.5 %; Mean Corpuscular HGB Conc 33.8 g/dL (31.6-35.5); Mean Corpuscular Hemoglobin 30.3 pg (28.0-33.3); Mean Corpuscular Volume 89.6 fL (83.0-100.0); Mean Platelet Volume 10.1 fL (9.4-12.4); Monocytes # 0.7 K/mcL (0.0-1.3); Monocytes % 9.1 %; Neutrophils # 4.5 K/mcL (1.6-8.9); Platelet Count 185 K/mcL (140-400); Red Blood Count 3.47 M/mcL (4.19-5.50); Red Cell Distribution Width 12.1 % (11.5-14.5); Segmented Neutrophils % 61.5 %; White Blood Count 7.4 K/mcL (4.3-11.1)
[2021-03-05 05:51] LABS: BUN/Creatinine Ratio 14 (6-26); Blood Urea Nitrogen 17 mg/dL (6-20); Carbon Dioxide 28 mEq/L (23-29); Chloride 107 mEq/L (98-107); Glucose 121 mg/dL (70-105); Osmolality,Calculated 293 (280-300); Potassium 3.7 mEq/L (3.5-5.1); Sodium 140 mEq/L (136-145); eGFR For African Americans > 60 (> 60); eGFR For Non-African Americans > 60 (> 60)
[2021-03-05 07:06] VITALS: BP 167/82
[2021-03-05] MEDS: Insulin LISPRO 300 UNITS/3 ML VIAL SUBQ SCH (07:17)
[2021-03-05] MEDS: cilostazoL 100 MG TABLET PO SCH (08:15)
[2021-03-05] MEDS: *HR* Enoxaparin 40 MG/0.4 ML SYRINGE SQ SCH (08:15)
[2021-03-05] MEDS: Insulin DETEMIR 100 UNIT/ML X5UNITS SUBQ SCH (08:15)
[2021-03-05] MEDS: Aspirin Enteric Coated 81 MG Tablet PO SCH (08:15)
[2021-03-05] MEDS: Metoprolol XL (24 HR) Succ 50 MG TAB.ER.24H PO SCH (08:15)
[2021-03-05] MEDS: Gabapentin 300 MG CAPSULE PO SCH (08:15)
== END 2021-03-05 10:50 | disposition home or self-care (01) | DRG 630 ==
LOC: EMEROOARM 13:34 → 3ANU 16:18 → SUATTDRO 16:18 → 3ANU 17:16 → 2NNU 03-02 14:41 → 2ANU 03-04 19:05
PROVIDERS: ADMIT Internal Medicine; ATTEND Internal Medicine

== ENCOUNTER 2021-04-25 14:00 | Inpatient (IN) ==
[2021-04-25] MEDS ORDERED: 0.9 % Sodium Chloride 1,000 ML IVC SCH (14:45)
[2021-04-25 14:51] LABS: Basophils # 0.1 K/mcL (0.0-0.2); Basophils % 0.5 %; Eosinophils # 0.2 K/mcL (0.0-0.6); Eosinophils % 1.9 %; Hematocrit 39.7 % (37.5-50.1); Immature Granulocytes % 0.3 % (0-4); Lymphocytes % 21.6 %; Mean Corpuscular HGB Conc 32.7 g/dL (31.6-35.5); Mean Corpuscular Hemoglobin 30.7 pg (28.0-33.3); Mean Corpuscular Volume 93.6 fL (83.0-100.0); Mean Platelet Volume 10.7 fL (9.4-12.4); Monocytes # 1.2 K/mcL (0.0-1.3); Monocytes % 12.9 %; Neutrophils # 5.7 K/mcL (1.6-8.9); Platelet Count 177 K/mcL (140-400); Red Blood Count 4.24 M/mcL (4.19-5.50); Segmented Neutrophils % 62.8 %; White Blood Count 9.1 K/mcL (4.3-11.1)
[2021-04-25] MEDS ORDERED: *HR* HYDROmorphone (PF) 1 MG/ML SYRINGE IVP PRN (14:57)
[2021-04-25] MEDS ORDERED: CEFTRIAXONE IN IS-OSM DEXTROSE 1 GM/50 ML PIGGYBACK IV SCH (15:00)
[2021-04-25] MEDS ORDERED: cefTRIAXone 2,000 MG in Water for inj. (sterile) 20 ML IVP ONE (15:00)
[2021-04-25] MEDS ORDERED: Vancomycin 2,000 MG/520 ML IV.SOLN IVPB ONE (15:00)
[2021-04-25 15:20] LABS: Alanine Aminotransferase 14 Units/L (7-52); Albumin 3.8 g/dL (3.5-5.7); Albumin/Globulin Ratio 1.1 (1.1-2.2); Alkaline Phosphatase 83 Units/L (34-104); Aspartate Amino Transferase 14 Units/L (13-39); BUN/Creatinine Ratio 19 (6-26); Bilirubin,Total 0.3 mg/dL (0.3-1.0); Blood Urea Nitrogen 28 mg/dL (6-20); C-Reactive Protein 48 mg/L (Less than 10); Calcium 9.3 mg/dL (8.6-10.3); Carbon Dioxide 32 mEq/L (23-29); Chloride 98 mEq/L (98-107); Globulin 3.6 g/dL (2.4-3.5); Glucose 144 mg/dL (70-105); Osmolality,Calculated 290 (280-300); Potassium 4.3 mEq/L (3.5-5.1); Sodium 136 mEq/L (136-145); Total Protein 7.4 g/dL (6.4-8.9); eGFR For African Americans > 60 (> 60); eGFR For Non-African Americans 50 (> 60)
[2021-04-25] MEDS ORDERED: Ondansetron 4 MG/2 ML VIAL IVP PRN (17:09)
[2021-04-25] MEDS ORDERED: Naloxone 0.4 MG/ML INJ IVP PRN (17:09)
[2021-04-25] MEDS ORDERED: Acetaminophen 325 MG TABLET PO PRN (17:09)
[2021-04-25] MEDS ORDERED: Melatonin 3 MG TABLET PO PRN (17:09)
[2021-04-25] MEDS ORDERED: Mag Hydrox/Al Hydrox/Simeth 30 ML UDC PO PRN (17:09)
[2021-04-25] MEDS ORDERED: *HR* Dextrose 50 % in Water (Vial) 50 ML VIAL IVP PRN (17:16)
[2021-04-25] MEDS ORDERED: Dextrose Gel 15 GM/37.5 ML TUBE PO PRN ×2 (17:16)
[2021-04-25] MEDS ORDERED: D5% in Water 1,000 ML IVC PRN (17:16)
[2021-04-25] MEDS: *HR* OxyCODONE Immed Rel 5 MG TABLET PO PRN (18:07)
[2021-04-25] MEDS: Insulin LISPRO 300 UNITS/3 ML VIAL SUBQ SCH ×2 (18:08→21:08)
[2021-04-25] MEDS: Lactobacillus 1 EACH CAP.SPRINK PO SCH (20:38)
[2021-04-25] MEDS: cilostazoL 100 MG TABLET PO SCH (20:38)
[2021-04-25] MEDS: *HR* HYDROcodone/Acet 5/325 mg TABLET PO PRN (20:43)
[2021-04-25] MEDS: ALPRAZolam 1 MG TABLET PO SCH (21:06)
[2021-04-25] MEDS: Insulin DETEMIR 100 UNIT/ML X5UNITS SUBQ SCH (21:06)
[2021-04-26 02:48] LABS: Basophils # 0.1 K/mcL (0.0-0.2); Basophils % 0.7 %; Eosinophils # 0.3 K/mcL (0.0-0.6); Eosinophils % 3.5 %; Hematocrit 35.9 % (37.5-50.1); Hemoglobin 11.7 g/dL (12.9-16.9); Immature Granulocytes % 0.3 % (0-4); Lymphocytes # 1.8 K/mcL (0.6-4.6); Lymphocytes % 25.5 %; Mean Corpuscular HGB Conc 32.6 g/dL (31.6-35.5); Mean Corpuscular Hemoglobin 30.6 pg (28.0-33.3); Mean Platelet Volume 10.6 fL (9.4-12.4); Monocytes # 1.1 K/mcL (0.0-1.3); Monocytes % 15.8 %; Neutrophils # 3.8 K/mcL (1.6-8.9); Platelet Count 159 K/mcL (140-400); Red Blood Count 3.82 M/mcL (4.19-5.50); Red Cell Distribution Width 12.9 % (11.5-14.5); Segmented Neutrophils % 54.2 %; White Blood Count 7.1 K/mcL (4.3-11.1)
[2021-04-26 02:57] LABS: Prothrombin Time 12.1 Seconds (9.4-12.1)
[2021-04-26 03:07] LABS: BUN/Creatinine Ratio 18 (6-26); Blood Urea Nitrogen 25 mg/dL (6-20); Calcium 8.7 mg/dL (8.6-10.3); Carbon Dioxide 34 mEq/L (23-29); Chloride 101 mEq/L (98-107); Glucose 78 mg/dL (70-105); Osmolality,Calculated 291 (280-300); Potassium 3.9 mEq/L (3.5-5.1); Sodium 139 mEq/L (136-145); eGFR For African Americans > 60 (> 60); eGFR For Non-African Americans 54 (> 60)
[2021-04-26] MEDS: *HR* HYDROcodone/Acet 5/325 mg TABLET PO PRN ×2 (05:47→16:18)
[2021-04-26] MEDS: Vancomycin 1,500 MG/265 ML IV.SOLN IVPB SCH ×2 (05:48→17:58)
[2021-04-26] MEDS: ALPRAZolam 1 MG TABLET PO SCH ×3 (08:00→21:06)
[2021-04-26] MEDS: cilostazoL 100 MG TABLET PO SCH ×2 (08:01→21:06)
[2021-04-26] MEDS: Lisinopril-HCTZ 20-12.5mg TABLET PO SCH (08:01)
[2021-04-26] MEDS: Lactobacillus 1 EACH CAP.SPRINK PO SCH ×2 (08:01→21:07)
[2021-04-26] MEDS: Aspirin Enteric Coated 81 MG Tablet PO SCH (08:01)
[2021-04-26] MEDS: Insulin DETEMIR 100 UNIT/ML X5UNITS SUBQ SCH ×2 (08:03→21:07)
[2021-04-26] MEDS: Insulin LISPRO 300 UNITS/3 ML VIAL SUBQ SCH ×4 (08:03→21:07)
[2021-04-26 12:42] LABS: Hematocrit 35.2 % (37.5-50.1); Hemoglobin 11.9 g/dL (12.9-16.9)
[2021-04-26] MEDS: *HR* OxyCODONE Immed Rel 5 MG TABLET PO PRN (13:15)
[2021-04-26] MEDS: cefTRIAXone 1,000 MG in 0.9 % Sodium Chloride Mini Bag 100 ML IVPB SCH (16:19)
[2021-04-26] MEDS ORDERED: *HR* HYDROcodone/Acet 5/325 mg TABLET PO PRN (17:06)
[2021-04-26] MEDS: Gabapentin 400 MG CAPSULE PO SCH (21:07)
[2021-04-27] MEDS: Vancomycin 1,500 MG/265 ML IV.SOLN IVPB SCH ×2 (05:12→19:18)
[2021-04-27 06:13] LABS: Basophils % 0.5 %; Eosinophils # 0.2 K/mcL (0.0-0.6); Hematocrit 34.6 % (37.5-50.1); Hemoglobin 11.8 g/dL (12.9-16.9); Immature Granulocytes % 0.4 % (0-4); Lymphocytes # 1.6 K/mcL (0.6-4.6); Lymphocytes % 21.2 %; Mean Corpuscular HGB Conc 34.1 g/dL (31.6-35.5); Mean Corpuscular Volume 90.8 fL (83.0-100.0); Mean Platelet Volume 10.8 fL (9.4-12.4); Monocytes # 0.8 K/mcL (0.0-1.3); Monocytes % 10.3 %; Neutrophils # 4.9 K/mcL (1.6-8.9); Platelet Count 188 K/mcL (140-400); Red Blood Count 3.81 M/mcL (4.19-5.50); Red Cell Distribution Width 12.5 % (11.5-14.5); Segmented Neutrophils % 64.6 %; White Blood Count 7.6 K/mcL (4.3-11.1)
[2021-04-27 06:37] LABS: BUN/Creatinine Ratio 18 (6-26); Blood Urea Nitrogen 24 mg/dL (6-20); Calcium 8.7 mg/dL (8.6-10.3); Carbon Dioxide 30 mEq/L (23-29); Chloride 101 mEq/L (98-107); Glucose 109 mg/dL (70-105); Osmolality,Calculated 291 (280-300); Potassium 3.8 mEq/L (3.5-5.1); Sodium 138 mEq/L (136-145); Vancomycin,Trough 16 mcg/mL (5-10); eGFR For African Americans > 60 (> 60); eGFR For Non-African Americans 55 (> 60)
[2021-04-27] MEDS: Gabapentin 400 MG CAPSULE PO SCH ×2 (08:57→21:27)
[2021-04-27] MEDS: ALPRAZolam 1 MG TABLET PO SCH ×3 (08:57→21:27)
[2021-04-27] MEDS: Lactobacillus 1 EACH CAP.SPRINK PO SCH ×2 (08:57→21:27)
[2021-04-27] MEDS: Lisinopril-HCTZ 20-12.5mg TABLET PO SCH (08:57)
[2021-04-27] MEDS: cilostazoL 100 MG TABLET PO SCH ×2 (08:58→21:27)
[2021-04-27] MEDS: Aspirin Enteric Coated 81 MG Tablet PO SCH (08:58)
[2021-04-27] MEDS: *HR* OxyCODONE Immed Rel 5 MG TABLET PO PRN ×3 (08:59→19:28)
[2021-04-27] MEDS ORDERED: Metoprolol XL (24 HR) Succ 50 MG TAB.ER.24H PO SCH (09:00)
[2021-04-27] MEDS: Insulin LISPRO 300 UNITS/3 ML VIAL SUBQ SCH ×4 (09:02→21:27)
[2021-04-27] MEDS: Insulin DETEMIR 100 UNIT/ML X5UNITS SUBQ SCH ×2 (09:02→21:29)
[2021-04-27] MEDS: cefTRIAXone 1,000 MG in 0.9 % Sodium Chloride Mini Bag 100 ML IVPB SCH (14:40)
[2021-04-27] MEDS ORDERED: *HR* HYDROmorphone 2 MG TABLET PO PRN ×2 (15:56→23:00)
[2021-04-27] MEDS ORDERED: Famotidine 20 MG/2 ML VIAL IVP ONE ×2 (15:56→23:00)
[2021-04-27] MEDS ORDERED: *HR* OxyCODONE Immed Rel 5 MG TABLET PO PRN ×2 (15:56→23:00)
[2021-04-27] MEDS ORDERED: *HR* Labetalol 20 MG/4 ML SYRINGE IVP PRN ×2 (15:56→23:00)
[2021-04-27] MEDS ORDERED: Acetaminophen IV 1,000 MG/100 ML BAG IVPB ONE ×2 (15:56→23:00)
[2021-04-27] MEDS ORDERED: Pregabalin 75 MG CAPSULE PO ONE ×2 (15:56→23:00)
[2021-04-27] MEDS ORDERED: *HR* HYDROmorphone (PF) 1 MG/ML SYRINGE IVP PRN ×2 (15:56→23:00)
[2021-04-27] MEDS ORDERED: Bupivacaine/Clonidine Syringe 20 ML, Syringe LUER-LOK 1 EACH TP ONE (16:15)
[2021-04-27] MEDS ORDERED: Lidocaine -MPF 2% 2 ML VIAL ONE (16:50)
[2021-04-27] MEDS ORDERED: ROPIVACAINE/PF/NS 0.25% 1 EACH SYRINGE INTRAART ONE (16:50)
[2021-04-27] MEDS ORDERED: *HR* Midazolam HCl 2 MG/2 ML VIAL ONE (16:51)
[2021-04-27] MEDS ORDERED: *HR* FentaNYL (PF) 100 MCG/2 ML VIAL ONE (16:51)
[2021-04-27] MEDS ORDERED: *HR* Propofol 200 MG/20 ML VIAL IVP ONE (16:59)
[2021-04-27] MEDS ORDERED: *HR* Dextrose 50 % in Water (Vial) 50 ML VIAL IVP PRN (23:00)
[2021-04-27] MEDS ORDERED: Naloxone 0.4 MG/ML INJ IVP PRN (23:00)
[2021-04-27] MEDS ORDERED: D5% in Water 1,000 ML IVC PRN (23:00)
[2021-04-27] MEDS ORDERED: Ondansetron 4 MG/2 ML VIAL IVP PRN (23:00)
[2021-04-27] MEDS ORDERED: Acetaminophen 325 MG TABLET PO PRN (23:00)
[2021-04-27] MEDS ORDERED: Melatonin 3 MG TABLET PO PRN (23:00)
[2021-04-27] MEDS ORDERED: Dextrose Gel 15 GM/37.5 ML TUBE PO PRN ×2 (23:00)
[2021-04-27] MEDS ORDERED: Mag Hydrox/Al Hydrox/Simeth 30 ML UDC PO PRN (23:00)
[2021-04-28 05:23] LABS: Basophils % 0.6 %; Eosinophils # 0.3 K/mcL (0.0-0.6); Eosinophils % 3.8 %; Hematocrit 33.1 % (37.5-50.1); Hemoglobin 11.2 g/dL (12.9-16.9); Immature Granulocytes % 0.3 % (0-4); Lymphocytes # 1.8 K/mcL (0.6-4.6); Lymphocytes % 26.9 %; Mean Corpuscular HGB Conc 33.8 g/dL (31.6-35.5); Mean Corpuscular Hemoglobin 30.9 pg (28.0-33.3); Mean Corpuscular Volume 91.2 fL (83.0-100.0); Mean Platelet Volume 10.2 fL (9.4-12.4); Monocytes # 0.7 K/mcL (0.0-1.3); Monocytes % 10.4 %; Neutrophils # 3.9 K/mcL (1.6-8.9); Platelet Count 181 K/mcL (140-400); Red Blood Count 3.63 M/mcL (4.19-5.50); Red Cell Distribution Width 12.4 % (11.5-14.5); White Blood Count 6.8 K/mcL (4.3-11.1)
[2021-04-28] MEDS: Vancomycin 1,500 MG/265 ML IV.SOLN IVPB SCH ×2 (05:31→18:04)
[2021-04-28] MEDS: *HR* OxyCODONE Immed Rel 5 MG TABLET PO PRN ×3 (05:33→18:10)
[2021-04-28 05:42] LABS: BUN/Creatinine Ratio 17 (6-26); Blood Urea Nitrogen 23 mg/dL (6-20); Calcium 8.7 mg/dL (8.6-10.3); Carbon Dioxide 35 mEq/L (23-29); Chloride 100 mEq/L (98-107); Glucose 178 mg/dL (70-105); Osmolality,Calculated 294 (280-300); Potassium 4.2 mEq/L (3.5-5.1); Sodium 138 mEq/L (136-145); eGFR For African Americans > 60 (> 60); eGFR For Non-African Americans 54 (> 60)
[2021-04-28] MEDS: Lisinopril-HCTZ 20-12.5mg TABLET PO SCH (09:25)
[2021-04-28] MEDS: ALPRAZolam 1 MG TABLET PO SCH ×3 (09:25→20:08)
[2021-04-28] MEDS: Aspirin Enteric Coated 81 MG Tablet PO SCH (09:25)
[2021-04-28] MEDS: Insulin LISPRO 300 UNITS/3 ML VIAL SUBQ SCH ×4 (09:26→20:15)
[2021-04-28] MEDS: cilostazoL 100 MG TABLET PO SCH ×2 (09:26→20:08)
[2021-04-28] MEDS: Gabapentin 400 MG CAPSULE PO SCH ×2 (09:26→20:08)
[2021-04-28] MEDS: Metoprolol XL (24 HR) Succ 50 MG TAB.ER.24H PO SCH (09:26)
[2021-04-28] MEDS: Lactobacillus 1 EACH CAP.SPRINK PO SCH ×2 (09:26→20:09)
[2021-04-28] MEDS: Insulin DETEMIR 100 UNIT/ML X5UNITS SUBQ SCH ×2 (09:41→20:14)
[2021-04-28] MEDS: cefTRIAXone 1,000 MG in 0.9 % Sodium Chloride Mini Bag 100 ML IVPB SCH (14:54)
[2021-04-28] MEDS: *HR* HYDROcodone/Acet 5/325 mg TABLET PO PRN (20:14)
[2021-04-29 06:15] LABS: Basophils # 0.1 K/mcL (0.0-0.2); Basophils % 0.9 %; Eosinophils # 0.2 K/mcL (0.0-0.6); Eosinophils % 3.9 %; Hematocrit 32.4 % (37.5-50.1); Hemoglobin 10.9 g/dL (12.9-16.9); Immature Granulocytes % 0.2 % (0-4); Lymphocytes # 1.7 K/mcL (0.6-4.6); Lymphocytes % 29.5 %; Mean Corpuscular HGB Conc 33.6 g/dL (31.6-35.5); Mean Corpuscular Hemoglobin 30.7 pg (28.0-33.3); Mean Corpuscular Volume 91.3 fL (83.0-100.0); Mean Platelet Volume 10.2 fL (9.4-12.4); Monocytes # 0.6 K/mcL (0.0-1.3); Monocytes % 9.6 %; Neutrophils # 3.3 K/mcL (1.6-8.9); Platelet Count 197 K/mcL (140-400); Red Blood Count 3.55 M/mcL (4.19-5.50); Red Cell Distribution Width 12.3 % (11.5-14.5); Segmented Neutrophils % 55.9 %; White Blood Count 5.9 K/mcL (4.3-11.1)
[2021-04-29 06:34] LABS: BUN/Creatinine Ratio 20 (6-26); Blood Urea Nitrogen 29 mg/dL (6-20); Calcium 8.3 mg/dL (8.6-10.3); Carbon Dioxide 34 mEq/L (23-29); Chloride 100 mEq/L (98-107); Glucose 225 mg/dL (70-105); Osmolality,Calculated 297 (280-300); Potassium 4.2 mEq/L (3.5-5.1); Sodium 137 mEq/L (136-145); eGFR For African Americans > 60 (> 60); eGFR For Non-African Americans 50 (> 60)
[2021-04-29] MEDS: Metoprolol XL (24 HR) Succ 50 MG TAB.ER.24H PO SCH (08:51)
[2021-04-29] MEDS: cilostazoL 100 MG TABLET PO SCH ×2 (08:51→19:42)
[2021-04-29] MEDS: Gabapentin 400 MG CAPSULE PO SCH ×2 (08:51→19:42)
[2021-04-29] MEDS: Aspirin Enteric Coated 81 MG Tablet PO SCH (08:51)
[2021-04-29] MEDS: ALPRAZolam 1 MG TABLET PO SCH ×3 (08:51→19:43)
[2021-04-29] MEDS: Lisinopril-HCTZ 20-12.5mg TABLET PO SCH (08:52)
[2021-04-29] MEDS: Lactobacillus 1 EACH CAP.SPRINK PO SCH ×2 (08:52→19:42)
[2021-04-29] MEDS: *HR* OxyCODONE Immed Rel 5 MG TABLET PO PRN ×3 (08:52→19:47)
[2021-04-29] MEDS: Insulin DETEMIR 100 UNIT/ML X5UNITS SUBQ SCH ×2 (08:55→19:48)
[2021-04-29] MEDS: Insulin LISPRO 300 UNITS/3 ML VIAL SUBQ SCH ×4 (08:57→19:48)
[2021-04-29] MEDS: cefTRIAXone 1,000 MG in 0.9 % Sodium Chloride Mini Bag 100 ML IVPB SCH (15:14)
[2021-04-29] MEDS: *HR* HYDROcodone/Acet 5/325 mg TABLET PO PRN (17:27)
[2021-04-29] MEDS ORDERED: Vancomycin 1,500 MG/265 ML IV.SOLN IVPB SCH (18:00)
[2021-04-30 07:55] LABS: Basophils % 0.6 %; Eosinophils # 0.3 K/mcL (0.0-0.6); Eosinophils % 3.9 %; Hematocrit 32.5 % (37.5-50.1); Hemoglobin 10.8 g/dL (12.9-16.9); Immature Granulocytes % 0.4 % (0-4); Lymphocytes # 1.9 K/mcL (0.6-4.6); Mean Corpuscular HGB Conc 33.2 g/dL (31.6-35.5); Mean Corpuscular Hemoglobin 30.5 pg (28.0-33.3); Mean Corpuscular Volume 91.8 fL (83.0-100.0); Mean Platelet Volume 10.1 fL (9.4-12.4); Monocytes # 0.6 K/mcL (0.0-1.3); Monocytes % 8.3 %; Neutrophils # 4.2 K/mcL (1.6-8.9); Platelet Count 208 K/mcL (140-400); Red Blood Count 3.54 M/mcL (4.19-5.50); Red Cell Distribution Width 12.2 % (11.5-14.5); Segmented Neutrophils % 59.8 %
[2021-04-30] MEDS: *HR* HYDROcodone/Acet 5/325 mg TABLET PO PRN ×3 (08:04→17:29)
[2021-04-30] MEDS: ALPRAZolam 1 MG TABLET PO SCH ×3 (08:04→21:28)
[2021-04-30] MEDS: Lisinopril-HCTZ 20-12.5mg TABLET PO SCH (08:04)
[2021-04-30] MEDS: Aspirin Enteric Coated 81 MG Tablet PO SCH (08:04)
[2021-04-30] MEDS: cilostazoL 100 MG TABLET PO SCH ×2 (08:05→21:28)
[2021-04-30] MEDS: Lactobacillus 1 EACH CAP.SPRINK PO SCH ×2 (08:05→21:27)
[2021-04-30] MEDS: Gabapentin 400 MG CAPSULE PO SCH ×2 (08:05→21:28)
[2021-04-30] MEDS: Metoprolol XL (24 HR) Succ 50 MG TAB.ER.24H PO SCH (08:05)
[2021-04-30] MEDS: Insulin DETEMIR 100 UNIT/ML X5UNITS SUBQ SCH ×2 (08:05→21:28)
[2021-04-30 08:15] LABS: BUN/Creatinine Ratio 23 (6-26); Blood Urea Nitrogen 33 mg/dL (6-20); Calcium 8.4 mg/dL (8.6-10.3); Carbon Dioxide 33 mEq/L (23-29); Chloride 102 mEq/L (98-107); Glucose 180 mg/dL (70-105); Osmolality,Calculated 298 (280-300); Potassium 4.1 mEq/L (3.5-5.1); Sodium 138 mEq/L (136-145); eGFR For African Americans > 60 (> 60); eGFR For Non-African Americans 53 (> 60)
[2021-04-30] MEDS: Insulin LISPRO 300 UNITS/3 ML VIAL SUBQ SCH ×4 (08:17→21:28)
[2021-04-30] MEDS ORDERED: Insulin DETEMIR 100 UNIT/ML X5UNITS SUBQ ONE (09:10)
[2021-04-30] MEDS: cefTRIAXone 1,000 MG in 0.9 % Sodium Chloride Mini Bag 100 ML IVPB SCH (14:49)
[2021-05-01 06:29] LABS: Basophils # 0.1 K/mcL (0.0-0.2); Basophils % 0.9 %; Eosinophils # 0.3 K/mcL (0.0-0.6); Eosinophils % 4.3 %; Hemoglobin 11.3 g/dL (12.9-16.9); Immature Granulocytes % 0.4 % (0-4); Lymphocytes # 2.1 K/mcL (0.6-4.6); Lymphocytes % 30.6 %; Mean Corpuscular HGB Conc 33.2 g/dL (31.6-35.5); Mean Corpuscular Hemoglobin 30.5 pg (28.0-33.3); Mean Corpuscular Volume 91.6 fL (83.0-100.0); Monocytes # 0.5 K/mcL (0.0-1.3); Monocytes % 7.6 %; Neutrophils # 3.9 K/mcL (1.6-8.9); Platelet Count 239 K/mcL (140-400); Red Blood Count 3.71 M/mcL (4.19-5.50); Red Cell Distribution Width 12.3 % (11.5-14.5); Segmented Neutrophils % 56.2 %; White Blood Count 6.9 K/mcL (4.3-11.1)
[2021-05-01 06:51] LABS: BUN/Creatinine Ratio 21 (6-26); Blood Urea Nitrogen 31 mg/dL (6-20); Calcium 8.8 mg/dL (8.6-10.3); Carbon Dioxide 31 mEq/L (23-29); Chloride 108 mEq/L (98-107); Glucose 211 mg/dL (70-105); Osmolality,Calculated 315 (280-300); Potassium 4.4 mEq/L (3.5-5.1); Sodium 146 mEq/L (136-145); eGFR For African Americans > 60 (> 60); eGFR For Non-African Americans 50 (> 60)
[2021-05-01] MEDS: Insulin LISPRO 300 UNITS/3 ML VIAL SUBQ SCH ×4 (08:19→21:34)
[2021-05-01] MEDS: ALPRAZolam 1 MG TABLET PO SCH ×3 (08:27→21:33)
[2021-05-01] MEDS: cilostazoL 100 MG TABLET PO SCH ×2 (08:27→21:34)
[2021-05-01] MEDS: Gabapentin 400 MG CAPSULE PO SCH ×2 (08:28→21:33)
[2021-05-01] MEDS: Aspirin Enteric Coated 81 MG Tablet PO SCH (08:28)
[2021-05-01] MEDS: Lisinopril-HCTZ 20-12.5mg TABLET PO SCH (08:28)
[2021-05-01] MEDS: Lactobacillus 1 EACH CAP.SPRINK PO SCH ×2 (08:28→21:34)
[2021-05-01] MEDS: Metoprolol XL (24 HR) Succ 50 MG TAB.ER.24H PO SCH (08:33)
[2021-05-01] MEDS: Insulin DETEMIR 100 UNIT/ML X5UNITS SUBQ SCH ×2 (08:33→21:37)
[2021-05-01] MEDS: *HR* HYDROcodone/Acet 5/325 mg TABLET PO PRN (12:01)
[2021-05-01] MEDS ORDERED: cefTRIAXone 2,000 MG in 0.9 % Sodium Chloride Mini Bag 100 ML IVPB SCH (16:00)
[2021-05-01] MEDS ORDERED: *HR* FentaNYL (PF) 100 MCG/2 ML VIAL ONE (16:35)
[2021-05-01] MEDS ORDERED: Lidocaine -MPF 2% 2 ML VIAL ONE (16:35)
[2021-05-01] MEDS ORDERED: Bupivacaine/Clonidine Syringe 20 ML, Syringe LUER-LOK 1 EACH TP ONE (17:00)
[2021-05-01] MEDS ORDERED: Vancomycin 1,000 MG VIAL ONE (17:02)
[2021-05-01] MEDS ORDERED: EPHEDrine 50 MG/ML VIAL ONE (17:32)
[2021-05-01] MEDS ORDERED: *HR* OxyCODONE Immed Rel 5 MG TABLET PO PRN ×3 (18:06→19:59)
[2021-05-01] MEDS ORDERED: *HR* Labetalol 20 MG/4 ML SYRINGE IVP PRN ×3 (18:06→19:59)
[2021-05-01] MEDS ORDERED: Acetaminophen IV 1,000 MG/100 ML BAG IVPB ONE ×2 (18:06→19:59)
[2021-05-01] MEDS ORDERED: Ondansetron 4 MG/2 ML VIAL IVP PRN (19:59)
[2021-05-01] MEDS ORDERED: *HR* HYDROcodone/Acet 5/325 mg TABLET PO PRN (19:59)
[2021-05-01] MEDS ORDERED: Acetaminophen 325 MG TABLET PO PRN (19:59)
[2021-05-01] MEDS ORDERED: Melatonin 3 MG TABLET PO PRN (19:59)
[2021-05-01] MEDS ORDERED: Dextrose Gel 15 GM/37.5 ML TUBE PO PRN ×2 (19:59)
[2021-05-01] MEDS ORDERED: *HR* HYDROmorphone 2 MG TABLET PO PRN (19:59)
[2021-05-01] MEDS ORDERED: Naloxone 0.4 MG/ML INJ IVP PRN (19:59)
[2021-05-01] MEDS ORDERED: D5% in Water 1,000 ML IVC PRN (19:59)
[2021-05-01] MEDS ORDERED: *HR* Dextrose 50 % in Water (Vial) 50 ML VIAL IVP PRN (19:59)
[2021-05-01] MEDS ORDERED: Mag Hydrox/Al Hydrox/Simeth 30 ML UDC PO PRN (19:59)
[2021-05-01] MEDS ORDERED: *HR* HYDROmorphone (PF) 1 MG/ML SYRINGE IVP PRN (19:59)
[2021-05-01] MEDS: *HR* OxyCODONE Immed Rel 5 MG TABLET PO PRN (21:34)
[2021-05-02] MEDS: *HR* OxyCODONE Immed Rel 5 MG TABLET PO PRN ×2 (04:32→09:18)
[2021-05-02 05:54] LABS: Hematocrit 32.6 % (37.5-50.1); Hemoglobin 11.2 g/dL (12.9-16.9); Mean Corpuscular HGB Conc 34.4 g/dL (31.6-35.5); Mean Corpuscular Hemoglobin 31.1 pg (28.0-33.3); Mean Corpuscular Volume 90.6 fL (83.0-100.0); Platelet Count 233 K/mcL (140-400); Red Cell Distribution Width 12.2 % (11.5-14.5); White Blood Count 8.8 K/mcL (4.3-11.1)
[2021-05-02 05:55] LABS: BUN/Creatinine Ratio 17 (6-26); Basophils # 0.1 K/mcL (0.0-0.2); Basophils % 0.6 %; Blood Urea Nitrogen 24 mg/dL (6-20); Calcium 8.8 mg/dL (8.6-10.3); Carbon Dioxide 34 mEq/L (23-29); Chloride 101 mEq/L (98-107); Eosinophils # 0.3 K/mcL (0.0-0.6); Eosinophils % 3.1 %; Glucose 177 mg/dL (70-105); Immature Granulocytes % 0.2 % (0-4); Lymphocytes # 1.8 K/mcL (0.6-4.6); Lymphocytes % 20.3 %; Mean Platelet Volume 9.7 fL (9.4-12.4); Monocytes # 0.7 K/mcL (0.0-1.3); Monocytes % 7.6 %; Osmolality,Calculated 298 (280-300); Potassium 3.7 mEq/L (3.5-5.1); Segmented Neutrophils % 68.2 %; Sodium 140 mEq/L (136-145); eGFR For African Americans > 60 (> 60); eGFR For Non-African Americans 53 (> 60)
[2021-05-02] MEDS: Lisinopril-HCTZ 20-12.5mg TABLET PO SCH (09:17)
[2021-05-02] MEDS: Gabapentin 400 MG CAPSULE PO SCH ×2 (09:17→21:15)
[2021-05-02] MEDS: ALPRAZolam 1 MG TABLET PO SCH ×3 (09:17→21:15)
[2021-05-02] MEDS: cilostazoL 100 MG TABLET PO SCH ×2 (09:17→21:16)
[2021-05-02] MEDS: Lactobacillus 1 EACH CAP.SPRINK PO SCH ×2 (09:17→21:15)
[2021-05-02] MEDS: Metoprolol XL (24 HR) Succ 50 MG TAB.ER.24H PO SCH (09:17)
[2021-05-02] MEDS: Aspirin Enteric Coated 81 MG Tablet PO SCH (09:18)
[2021-05-02] MEDS: Insulin DETEMIR 100 UNIT/ML X5UNITS SUBQ SCH ×2 (09:21→21:18)
[2021-05-02] MEDS: Insulin LISPRO 300 UNITS/3 ML VIAL SUBQ SCH ×4 (09:21→21:16)
[2021-05-02] MEDS ORDERED: Acetaminophen 325 MG TABLET PO PRN (13:13)
[2021-05-02] MEDS: *HR* OxyCODONE/APAP 7.5/325 TABLET PO PRN ×2 (14:05→21:15)
[2021-05-02] MEDS ORDERED: Vancomycin 1,500 MG/265 ML IV.SOLN IVPB SCH (15:00)
[2021-05-02] MEDS ORDERED: Vancomycin 1,250 MG/262.5 ML IV.SOLN IVPB SCH (15:00)
[2021-05-02] MEDS: cefTRIAXone 2,000 MG in 0.9 % Sodium Chloride Mini Bag 100 ML IVPB SCH (15:38)
[2021-05-02] MEDS: Vancomycin 1,500 MG/265 ML IV.SOLN IVPB SCH (16:23)
[2021-05-03 04:31] LABS: Basophils % 0.6 %; Eosinophils # 0.2 K/mcL (0.0-0.6); Eosinophils % 3.5 %; Hematocrit 31.7 % (37.5-50.1); Hemoglobin 10.7 g/dL (12.9-16.9); Immature Granulocytes % 0.3 % (0-4); Lymphocytes # 1.9 K/mcL (0.6-4.6); Lymphocytes % 29.4 %; Mean Corpuscular HGB Conc 33.8 g/dL (31.6-35.5); Mean Corpuscular Hemoglobin 30.9 pg (28.0-33.3); Mean Corpuscular Volume 91.6 fL (83.0-100.0); Mean Platelet Volume 9.6 fL (9.4-12.4); Monocytes # 0.6 K/mcL (0.0-1.3); Monocytes % 9.8 %; Neutrophils # 3.7 K/mcL (1.6-8.9); Platelet Count 217 K/mcL (140-400); Red Blood Count 3.46 M/mcL (4.19-5.50); Red Cell Distribution Width 12.5 % (11.5-14.5); Segmented Neutrophils % 56.4 %; White Blood Count 6.6 K/mcL (4.3-11.1)
[2021-05-03 04:51] LABS: BUN/Creatinine Ratio 15 (6-26); Blood Urea Nitrogen 22 mg/dL (6-20); Calcium 8.3 mg/dL (8.6-10.3); Carbon Dioxide 33 mEq/L (23-29); Chloride 102 mEq/L (98-107); Glucose 187 mg/dL (70-105); Magnesium 1.7 mg/dL (1.6-2.6); Osmolality,Calculated 294 (280-300); Potassium 3.8 mEq/L (3.5-5.1); Sodium 138 mEq/L (136-145); eGFR For African Americans > 60 (> 60); eGFR For Non-African Americans 51 (> 60)
[2021-05-03 05:26] LABS: Estimated Average Glucose 194 mg/dl; Hemoglobin A1C 8.4 %
[2021-05-03] MEDS: Insulin LISPRO 300 UNITS/3 ML VIAL SUBQ SCH ×4 (08:14→20:12)
[2021-05-03] MEDS: ALPRAZolam 1 MG TABLET PO SCH ×3 (08:22→20:11)
[2021-05-03] MEDS: Lactobacillus 1 EACH CAP.SPRINK PO SCH ×2 (08:22→20:11)
[2021-05-03] MEDS: Lisinopril-HCTZ 20-12.5mg TABLET PO SCH (08:22)
[2021-05-03] MEDS: Aspirin Enteric Coated 81 MG Tablet PO SCH (08:22)
[2021-05-03] MEDS: Metoprolol XL (24 HR) Succ 50 MG TAB.ER.24H PO SCH (08:22)
[2021-05-03] MEDS: Insulin DETEMIR 100 UNIT/ML X5UNITS SUBQ SCH ×2 (08:23→20:11)
[2021-05-03] MEDS: Gabapentin 400 MG CAPSULE PO SCH ×2 (08:23→20:11)
[2021-05-03] MEDS: cilostazoL 100 MG TABLET PO SCH ×2 (08:23→20:11)
[2021-05-03] MEDS: cefTRIAXone 2,000 MG in 0.9 % Sodium Chloride Mini Bag 100 ML IVPB SCH (15:18)
[2021-05-03] MEDS: *HR* OxyCODONE/APAP 7.5/325 TABLET PO PRN ×2 (15:18→20:11)
[2021-05-03] MEDS: Vancomycin 1,500 MG/265 ML IV.SOLN IVPB SCH (16:05)
[2021-05-04 04:42] LABS: Basophils # 0.1 K/mcL (0.0-0.2); Basophils % 0.9 %; Eosinophils # 0.3 K/mcL (0.0-0.6); Eosinophils % 4.2 %; Hematocrit 32.1 % (37.5-50.1); Hemoglobin 10.5 g/dL (12.9-16.9); Immature Granulocytes % 0.3 % (0-4); Lymphocytes # 2.1 K/mcL (0.6-4.6); Lymphocytes % 29.8 %; Mean Corpuscular HGB Conc 32.7 g/dL (31.6-35.5); Mean Corpuscular Hemoglobin 30.1 pg (28.0-33.3); Mean Platelet Volume 9.6 fL (9.4-12.4); Monocytes # 0.6 K/mcL (0.0-1.3); Neutrophils # 3.9 K/mcL (1.6-8.9); Platelet Count 215 K/mcL (140-400); Red Blood Count 3.49 M/mcL (4.19-5.50); Red Cell Distribution Width 12.5 % (11.5-14.5); Segmented Neutrophils % 55.8 %
[2021-05-04 05:01] LABS: BUN/Creatinine Ratio 22 (6-26); Blood Urea Nitrogen 29 mg/dL (6-20); Calcium 8.4 mg/dL (8.6-10.3); Carbon Dioxide 32 mEq/L (23-29); Chloride 102 mEq/L (98-107); Glucose 161 mg/dL (70-105); Magnesium 1.6 mg/dL (1.6-2.6); Osmolality,Calculated 293 (280-300); Potassium 4.1 mEq/L (3.5-5.1); Sodium 137 mEq/L (136-145); eGFR For African Americans > 60 (> 60); eGFR For Non-African Americans 56 (> 60)
[2021-05-04 05:04] LABS: % Iron Saturation 16 % (20-55); Iron 43 mcg/dL (65-175); Transferrin 187 mg/dL (203-362)
[2021-05-04 05:21] LABS: Ferritin 104 ng/mL (20-250)
[2021-05-04 05:27] LABS: Folate 17.1 ng/mL (3.0-16.0)
[2021-05-04] MEDS: *HR* OxyCODONE/APAP 7.5/325 TABLET PO PRN ×4 (06:03→21:40)
[2021-05-04] MEDS: Lactobacillus 1 EACH CAP.SPRINK PO SCH ×2 (08:15→21:40)
[2021-05-04] MEDS: Lisinopril-HCTZ 20-12.5mg TABLET PO SCH (08:15)
[2021-05-04] MEDS: Aspirin Enteric Coated 81 MG Tablet PO SCH (08:16)
[2021-05-04] MEDS: Gabapentin 400 MG CAPSULE PO SCH ×2 (08:16→21:40)
[2021-05-04] MEDS: Metoprolol XL (24 HR) Succ 50 MG TAB.ER.24H PO SCH (08:16)
[2021-05-04] MEDS: cilostazoL 100 MG TABLET PO SCH ×2 (08:16→21:39)
[2021-05-04] MEDS: Insulin DETEMIR 100 UNIT/ML X5UNITS SUBQ SCH ×2 (08:16→21:41)
[2021-05-04] MEDS: ALPRAZolam 1 MG TABLET PO SCH ×3 (08:16→21:40)
[2021-05-04] MEDS: Insulin LISPRO 300 UNITS/3 ML VIAL SUBQ SCH ×3 (08:17→16:35)
[2021-05-05] MEDS: *HR* OxyCODONE/APAP 7.5/325 TABLET PO PRN ×4 (04:08→21:08)
[2021-05-05] MEDS: Gabapentin 400 MG CAPSULE PO SCH ×2 (07:27→21:08)
[2021-05-05] MEDS: levoFLOXacin 750 MG/150 ML 750 MG/150 ML BAG IVPB SCH (07:27)
[2021-05-05] MEDS: Aspirin Enteric Coated 81 MG Tablet PO SCH (07:27)
[2021-05-05] MEDS: cilostazoL 100 MG TABLET PO SCH ×2 (07:27→21:09)
[2021-05-05] MEDS: ALPRAZolam 1 MG TABLET PO SCH ×3 (07:27→21:08)
[2021-05-05] MEDS: Lactobacillus 1 EACH CAP.SPRINK PO SCH ×2 (07:27→21:09)
[2021-05-05] MEDS: Insulin LISPRO 300 UNITS/3 ML VIAL SUBQ SCH ×4 (08:45→18:13)
[2021-05-05 10:19] LABS: Basophils # 0.1 K/mcL (0.0-0.2); Basophils % 0.8 %; Eosinophils # 0.3 K/mcL (0.0-0.6); Eosinophils % 3.8 %; Hematocrit 33.6 % (37.5-50.1); Hemoglobin 10.8 g/dL (12.9-16.9); Immature Granulocytes % 0.5 % (0-4); Lymphocytes # 1.7 K/mcL (0.6-4.6); Lymphocytes % 22.3 %; Mean Corpuscular HGB Conc 32.1 g/dL (31.6-35.5); Mean Corpuscular Hemoglobin 29.8 pg (28.0-33.3); Mean Corpuscular Volume 92.6 fL (83.0-100.0); Mean Platelet Volume 9.6 fL (9.4-12.4); Monocytes # 0.6 K/mcL (0.0-1.3); Monocytes % 8.5 %; Neutrophils # 4.8 K/mcL (1.6-8.9); Platelet Count 216 K/mcL (140-400); Red Blood Count 3.63 M/mcL (4.19-5.50); Red Cell Distribution Width 12.3 % (11.5-14.5); Segmented Neutrophils % 64.1 %; White Blood Count 7.5 K/mcL (4.3-11.1)
[2021-05-05 10:38] LABS: Calcium 8.6 mg/dL (8.6-10.3); Magnesium 1.7 mg/dL (1.6-2.6); Potassium 4.2 mEq/L (3.5-5.1)
[2021-05-05] MEDS: Metoprolol XL (24 HR) Succ 50 MG TAB.ER.24H PO SCH (14:34)
[2021-05-05] MEDS ORDERED: Insulin LISPRO 300 UNITS/3 ML VIAL SUBQ SCH (21:00)
[2021-05-05] MEDS: Insulin DETEMIR 100 UNIT/ML X5UNITS SUBQ SCH (21:09)
[2021-05-06 03:41] LABS: Basophils # 0.1 K/mcL (0.0-0.2); Basophils % 0.8 %; Eosinophils # 0.3 K/mcL (0.0-0.6); Eosinophils % 4.2 %; Hematocrit 32.2 % (37.5-50.1); Hemoglobin 10.5 g/dL (12.9-16.9); Immature Granulocytes % 0.6 % (0-4); Lymphocytes # 1.8 K/mcL (0.6-4.6); Lymphocytes % 27.3 %; Mean Corpuscular HGB Conc 32.6 g/dL (31.6-35.5); Mean Corpuscular Hemoglobin 30.3 pg (28.0-33.3); Mean Corpuscular Volume 92.8 fL (83.0-100.0); Mean Platelet Volume 9.7 fL (9.4-12.4); Monocytes # 0.6 K/mcL (0.0-1.3); Monocytes % 8.6 %; Neutrophils # 3.9 K/mcL (1.6-8.9); Platelet Count 220 K/mcL (140-400); Red Blood Count 3.47 M/mcL (4.19-5.50); Red Cell Distribution Width 12.4 % (11.5-14.5); Segmented Neutrophils % 58.5 %; White Blood Count 6.6 K/mcL (4.3-11.1)
[2021-05-06 04:01] LABS: Calcium 8.5 mg/dL (8.6-10.3); Magnesium 1.7 mg/dL (1.6-2.6); Potassium 4.5 mEq/L (3.5-5.1)
[2021-05-06] MEDS: *HR* OxyCODONE/APAP 7.5/325 TABLET PO PRN ×3 (05:06→20:10)
[2021-05-06] MEDS: Lactobacillus 1 EACH CAP.SPRINK PO SCH ×2 (08:27→20:10)
[2021-05-06] MEDS: Metoprolol XL (24 HR) Succ 50 MG TAB.ER.24H PO SCH (08:28)
[2021-05-06] MEDS: Gabapentin 400 MG CAPSULE PO SCH ×2 (08:28→20:10)
[2021-05-06] MEDS: Aspirin Enteric Coated 81 MG Tablet PO SCH (08:28)
[2021-05-06] MEDS: ALPRAZolam 1 MG TABLET PO SCH ×3 (08:28→20:10)
[2021-05-06] MEDS: Insulin LISPRO 300 UNITS/3 ML VIAL SUBQ SCH ×3 (08:29→16:51)
[2021-05-06] MEDS: levoFLOXacin 750 MG/150 ML 750 MG/150 ML BAG IVPB SCH (08:29)
[2021-05-06] MEDS: cilostazoL 100 MG TABLET PO SCH ×2 (08:29→20:10)
[2021-05-06] MEDS: Insulin DETEMIR 100 UNIT/ML X5UNITS SUBQ SCH (20:13)
[2021-05-07 04:44] LABS: Basophils # 0.1 K/mcL (0.0-0.2); Basophils % 0.7 %; Eosinophils # 0.3 K/mcL (0.0-0.6); Eosinophils % 4.4 %; Hematocrit 31.6 % (37.5-50.1); Hemoglobin 10.8 g/dL (12.9-16.9); Immature Granulocytes % 0.7 % (0-4); Lymphocytes # 2.2 K/mcL (0.6-4.6); Lymphocytes % 28.1 %; Mean Corpuscular HGB Conc 34.2 g/dL (31.6-35.5); Mean Corpuscular Hemoglobin 31.2 pg (28.0-33.3); Mean Corpuscular Volume 91.3 fL (83.0-100.0); Monocytes # 0.7 K/mcL (0.0-1.3); Monocytes % 8.9 %; Neutrophils # 4.4 K/mcL (1.6-8.9); Platelet Count 221 K/mcL (140-400); Red Blood Count 3.46 M/mcL (4.19-5.50); Red Cell Distribution Width 12.3 % (11.5-14.5); Segmented Neutrophils % 57.2 %; White Blood Count 7.7 K/mcL (4.3-11.1)
[2021-05-07 05:07] LABS: BUN/Creatinine Ratio 27 (6-26); Blood Urea Nitrogen 39 mg/dL (6-20); Calcium 8.7 mg/dL (8.6-10.3); Carbon Dioxide 33 mEq/L (23-29); Chloride 102 mEq/L (98-107); Glucose 313 mg/dL (70-105); Magnesium 1.8 mg/dL (1.6-2.6); Osmolality,Calculated 305 (280-300); Potassium 4.6 mEq/L (3.5-5.1); Sodium 137 mEq/L (136-145); eGFR For African Americans > 60 (> 60); eGFR For Non-African Americans 51 (> 60)
[2021-05-07] MEDS: Aspirin Enteric Coated 81 MG Tablet PO SCH (08:13)
[2021-05-07] MEDS: Gabapentin 400 MG CAPSULE PO SCH ×2 (08:13→20:24)
[2021-05-07] MEDS: *HR* OxyCODONE/APAP 7.5/325 TABLET PO PRN ×4 (08:13→20:59)
[2021-05-07] MEDS: cilostazoL 100 MG TABLET PO SCH ×2 (08:13→20:24)
[2021-05-07] MEDS: Lactobacillus 1 EACH CAP.SPRINK PO SCH ×2 (08:13→20:24)
[2021-05-07] MEDS: Metoprolol XL (24 HR) Succ 50 MG TAB.ER.24H PO SCH (08:13)
[2021-05-07] MEDS: levoFLOXacin 750 MG/150 ML 750 MG/150 ML BAG IVPB SCH (08:14)
[2021-05-07] MEDS: ALPRAZolam 1 MG TABLET PO SCH ×3 (08:14→20:24)
[2021-05-07] MEDS: Insulin LISPRO 300 UNITS/3 ML VIAL SUBQ SCH ×3 (08:17→17:09)
[2021-05-07] MEDS: Insulin DETEMIR 100 UNIT/ML X5UNITS SUBQ SCH (09:04)
[2021-05-08 04:07] LABS: Basophils # 0.1 K/mcL (0.0-0.2); Basophils % 0.9 %; Eosinophils # 0.4 K/mcL (0.0-0.6); Hematocrit 32.9 % (37.5-50.1); Hemoglobin 11.2 g/dL (12.9-16.9); Immature Granulocytes % 0.9 % (0-4); Lymphocytes # 2.2 K/mcL (0.6-4.6); Lymphocytes % 28.6 %; Mean Corpuscular Volume 91.1 fL (83.0-100.0); Monocytes # 0.6 K/mcL (0.0-1.3); Monocytes % 7.6 %; Neutrophils # 4.5 K/mcL (1.6-8.9); Platelet Count 242 K/mcL (140-400); Red Blood Count 3.61 M/mcL (4.19-5.50); Red Cell Distribution Width 12.4 % (11.5-14.5); White Blood Count 7.8 K/mcL (4.3-11.1)
[2021-05-08 04:31] LABS: Calcium 8.7 mg/dL (8.6-10.3); Magnesium 1.8 mg/dL (1.6-2.6); Potassium 4.1 mEq/L (3.5-5.1)
[2021-05-08 07:03] VITALS: BP 147/89; PULSE 66; TEMP 97.6; O2SAT 97
[2021-05-08] MEDS: Gabapentin 400 MG CAPSULE PO SCH (08:10)
[2021-05-08] MEDS: Metoprolol XL (24 HR) Succ 50 MG TAB.ER.24H PO SCH (08:10)
[2021-05-08] MEDS: Aspirin Enteric Coated 81 MG Tablet PO SCH (08:10)
[2021-05-08] MEDS: ALPRAZolam 1 MG TABLET PO SCH ×2 (08:11→16:03)
[2021-05-08] MEDS: Insulin LISPRO 300 UNITS/3 ML VIAL SUBQ SCH ×2 (08:11→12:07)
[2021-05-08] MEDS: cilostazoL 100 MG TABLET PO SCH (08:11)
[2021-05-08] MEDS: Lactobacillus 1 EACH CAP.SPRINK PO SCH (08:11)
[2021-05-08] MEDS: Insulin DETEMIR 100 UNIT/ML X5UNITS SUBQ SCH (08:19)
[2021-05-08] MEDS ORDERED: levoFLOXacin 750 MG TABLET PO SCH (09:00)
[2021-05-08] MEDS: Lisinopril-HCTZ 20-12.5mg TABLET PO SCH (09:32)
[2021-05-08] MEDS: *HR* OxyCODONE/APAP 7.5/325 TABLET PO PRN (12:10)
== END 2021-05-08 16:52 | disposition home health service (06) | DRG 629 ==
LOC: EMEROOARM 14:00 → 3NENU 14:00 → SUATTDRO 16:37 → 3NENU 17:01 → SUATTDRO 04-26 18:56
PROVIDERS: ADMIT Internal Medicine; ATTEND Pharmacist

== ENCOUNTER 2021-06-25 09:09 | Inpatient (IN) ==
[2021-06-25] MEDS ORDERED: Piperacillin/Tazobactam 3.375 GM in 0.9 % Sodium Chloride Mini Bag 100 ML IVPB ONE (09:46)
[2021-06-25] MEDS ORDERED: Piperacillin/Tazobactam 3.375 GM in Water for inj. (sterile) 20 ML IVP ONE (09:58)
[2021-06-25 10:00] LABS: Eosinophils % 2.7 %; Hematocrit 38.6 % (37.5-50.1); Hemoglobin 13.2 g/dL (12.9-16.9); Immature Granulocytes % 0.2 % (0-4); Lymphocytes % 20.2 %; Mean Corpuscular HGB Conc 34.2 g/dL (31.6-35.5); Mean Corpuscular Hemoglobin 30.8 pg (28.0-33.3); Mean Platelet Volume 10.3 fL (9.4-12.4); Monocytes % 9.2 %; Platelet Count 213 K/mcL (140-400); Red Blood Count 4.29 M/mcL (4.19-5.50); Red Cell Distribution Width 12.8 % (11.5-14.5); Segmented Neutrophils % 67.3 %
[2021-06-25 10:01] LABS: Basophils % 0.4 %; Eosinophils # 0.2 K/mcL (0.0-0.6); Lymphocytes # 1.8 K/mcL (0.6-4.6); Monocytes # 0.8 K/mcL (0.0-1.3); Neutrophils # 6.1 K/mcL (1.6-8.9)
[2021-06-25 10:19] LABS: BUN/Creatinine Ratio 17 (6-26); Blood Urea Nitrogen 23 mg/dL (6-20); Calcium 8.9 mg/dL (8.6-10.3); Carbon Dioxide 30 mEq/L (23-29); Chloride 103 mEq/L (98-107); Glucose 123 mg/dL (70-105); Osmolality,Calculated 293 (280-300); Potassium 3.9 mEq/L (3.5-5.1); Sodium 139 mEq/L (136-145); eGFR For African Americans > 60 (> 60); eGFR For Non-African Americans 56 (> 60)
[2021-06-25 10:47] LABS: C-Reactive Protein 14 mg/L (Less than 10)
[2021-06-25] MEDS ORDERED: Isovue-370 500 ML BOTTLE IVP ONE (11:11)
[2021-06-25] MEDS ORDERED: Ondansetron ODT 4 MG TAB.RAPDIS SL PRN (13:30)
[2021-06-25] MEDS ORDERED: Mag Hydrox/Al Hydrox/Simeth 30 ML UDC PO PRN (13:30)
[2021-06-25] MEDS ORDERED: Naloxone 0.4 MG/ML INJ IVP PRN (13:30)
[2021-06-25] MEDS ORDERED: Melatonin 3 MG TABLET PO PRN (13:30)
[2021-06-25] MEDS ORDERED: MOM Conc 10 ML UD.LIQ PO PRN (13:30)
[2021-06-25] MEDS ORDERED: D5% in Water 1,000 ML IVC PRN (13:32)
[2021-06-25] MEDS ORDERED: *HR* Dextrose 50 % in Water (Syg) 50 ML SYRINGE IVP PRN (13:32)
[2021-06-25] MEDS ORDERED: Gadolinium Contrast Agent (WT Based) IV PRN (13:32)
[2021-06-25] MEDS ORDERED: Dextrose Gel 15 GM/37.5 ML TUBE PO PRN ×2 (13:32)
[2021-06-25] MEDS ORDERED: GADOBUTROL 30 MMOL/30 ML VIAL IVP ONE (15:28)
[2021-06-25] MEDS ORDERED: Insulin LISPRO 300 UNITS/3 ML VIAL SUBQ SCH ×2 (16:30→21:00)
[2021-06-25] MEDS: Piperacillin/Tazobactam 3.375 GM in 0.9 % Sodium Chloride Mini Bag 100 ML IVPB SCH (19:57)
[2021-06-25] MEDS: ALPRAZolam 1 MG TABLET PO SCH (20:17)
[2021-06-25] MEDS ORDERED: Insulin DETEMIR 100 UNIT/ML X5UNITS SUBQ SCH (21:00)
[2021-06-26 05:13] LABS: Estimated Average Glucose 209 mg/dl; Hemoglobin A1C 8.9 %
[2021-06-26 05:22] LABS: BUN/Creatinine Ratio 14 (6-26); Blood Urea Nitrogen 19 mg/dL (6-20); Calcium 8.8 mg/dL (8.6-10.3); Carbon Dioxide 29 mEq/L (23-29); Chloride 106 mEq/L (98-107); Glucose 80 mg/dL (70-105); Osmolality,Calculated 291 (280-300); Potassium 3.6 mEq/L (3.5-5.1); Sodium 140 mEq/L (136-145); eGFR For African Americans > 60 (> 60); eGFR For Non-African Americans 56 (> 60)
[2021-06-26 05:24] LABS: Hematocrit 37.2 % (37.5-50.1); Mean Corpuscular HGB Conc 34.9 g/dL (31.6-35.5); Mean Corpuscular Hemoglobin 31.3 pg (28.0-33.3); Mean Corpuscular Volume 89.4 fL (83.0-100.0); Mean Platelet Volume 10.5 fL (9.4-12.4); Platelet Count 206 K/mcL (140-400); Red Blood Count 4.16 M/mcL (4.19-5.50); Red Cell Distribution Width 12.7 % (11.5-14.5); White Blood Count 6.5 K/mcL (4.3-11.1)
[2021-06-26] MEDS: Piperacillin/Tazobactam 3.375 GM in 0.9 % Sodium Chloride Mini Bag 100 ML IVPB SCH ×2 (06:55→13:17)
[2021-06-26] MEDS: *HR* Enoxaparin 40 MG/0.4 ML SYRINGE SQ SCH (07:06)
[2021-06-26] MEDS ORDERED: Insulin LISPRO 300 UNITS/3 ML VIAL SUBQ SCH (08:00)
[2021-06-26] MEDS: Metoprolol XL (24 HR) Succ 50 MG TAB.ER.24H PO SCH (09:50)
[2021-06-26] MEDS: Gabapentin 400 MG CAPSULE PO SCH ×2 (09:50→21:58)
[2021-06-26] MEDS: ALPRAZolam 1 MG TABLET PO SCH ×3 (09:50→21:58)
[2021-06-26] MEDS ORDERED: Vancomycin 1,500 MG/265 ML IV.SOLN IVPB SCH (10:00)
[2021-06-26] MEDS: Insulin LISPRO 300 UNITS/3 ML VIAL SUBQ SCH ×2 (20:06→21:57)
[2021-06-26] MEDS: metroNIDAZOLE 500 MG TABLET PO SCH (21:59)
[2021-06-26] MEDS: ceFAZolin 2,000 MG in 0.9 % Sodium Chloride 100 ML IVPB SCH (22:03)
[2021-06-27 05:47] LABS: Basophils % 0.7 %; Eosinophils # 0.2 K/mcL (0.0-0.6); Eosinophils % 3.1 %; Hematocrit 36.9 % (37.5-50.1); Hemoglobin 12.4 g/dL (12.9-16.9); Immature Granulocytes % 0.2 % (0-4); Lymphocytes # 2.1 K/mcL (0.6-4.6); Mean Corpuscular HGB Conc 33.6 g/dL (31.6-35.5); Mean Corpuscular Hemoglobin 30.4 pg (28.0-33.3); Mean Corpuscular Volume 90.4 fL (83.0-100.0); Mean Platelet Volume 10.5 fL (9.4-12.4); Monocytes # 0.5 K/mcL (0.0-1.3); Monocytes % 8.5 %; Neutrophils # 3.3 K/mcL (1.6-8.9); Platelet Count 185 K/mcL (140-400); Red Blood Count 4.08 M/mcL (4.19-5.50); Red Cell Distribution Width 12.7 % (11.5-14.5); Segmented Neutrophils % 53.5 %; White Blood Count 6.1 K/mcL (4.3-11.1)
[2021-06-27 05:53] LABS: BUN/Creatinine Ratio 14 (6-26); Blood Urea Nitrogen 20 mg/dL (6-20); Calcium 8.6 mg/dL (8.6-10.3); Carbon Dioxide 28 mEq/L (23-29); Chloride 104 mEq/L (98-107); Glucose 161 mg/dL (70-105); Magnesium 1.7 mg/dL (1.6-2.6); Osmolality,Calculated 292 (280-300); Phosphorous 2.5 mg/dL (2.7-4.5); Potassium 3.9 mEq/L (3.5-5.1); Sodium 138 mEq/L (136-145); eGFR For African Americans > 60 (> 60); eGFR For Non-African Americans 54 (> 60)
[2021-06-27] MEDS: *HR* Enoxaparin 40 MG/0.4 ML SYRINGE SQ SCH (06:32)
[2021-06-27] MEDS: ceFAZolin 2,000 MG in 0.9 % Sodium Chloride 100 ML IVPB SCH ×3 (06:57→19:43)
[2021-06-27] MEDS: ALPRAZolam 1 MG TABLET PO SCH ×3 (09:21→19:43)
[2021-06-27] MEDS: metroNIDAZOLE 500 MG TABLET PO SCH ×3 (09:21→19:43)
[2021-06-27] MEDS: Gabapentin 400 MG CAPSULE PO SCH ×2 (09:21→19:43)
[2021-06-27] MEDS: Metoprolol XL (24 HR) Succ 50 MG TAB.ER.24H PO SCH (09:21)
[2021-06-27] MEDS: Insulin LISPRO 300 UNITS/3 ML VIAL SUBQ SCH ×4 (09:22→20:52)
[2021-06-27] MEDS ORDERED: Morphine Sulfate 2 MG/ML SYRINGE IVP PRN (13:53)
[2021-06-27] MEDS ORDERED: hydroCHLOROthiazide 25 MG TABLET PO ONE (15:49)
[2021-06-27] MEDS ORDERED: lisinopriL 10 MG TABLET PO ONE (15:49)
[2021-06-28] MEDS: ceFAZolin 2,000 MG in 0.9 % Sodium Chloride 100 ML IVPB SCH ×3 (04:04→19:57)
[2021-06-28] MEDS: *HR* Enoxaparin 40 MG/0.4 ML SYRINGE SQ SCH (05:33)
[2021-06-28 07:21] LABS: BUN/Creatinine Ratio 13 (6-26); Blood Urea Nitrogen 17 mg/dL (6-20); Carbon Dioxide 35 mEq/L (23-29); Chloride 101 mEq/L (98-107); Glucose 188 mg/dL (70-105); Osmolality,Calculated 295 (280-300); Potassium 3.7 mEq/L (3.5-5.1); Sodium 139 mEq/L (136-145); eGFR For African Americans > 60 (> 60); eGFR For Non-African Americans 56 (> 60)
[2021-06-28] MEDS: ALPRAZolam 1 MG TABLET PO SCH ×3 (08:29→19:57)
[2021-06-28] MEDS: Gabapentin 400 MG CAPSULE PO SCH ×2 (08:30→19:57)
[2021-06-28] MEDS: metroNIDAZOLE 500 MG TABLET PO SCH ×3 (08:31→19:57)
[2021-06-28] MEDS: Metoprolol XL (24 HR) Succ 50 MG TAB.ER.24H PO SCH (08:31)
[2021-06-28] MEDS: Lisinopril-HCTZ 20-12.5mg TABLET PO SCH (08:31)
[2021-06-28] MEDS: Insulin LISPRO 300 UNITS/3 ML VIAL SUBQ SCH ×4 (08:32→21:47)
[2021-06-28] MEDS ORDERED: amLODIPine 5 MG TABLET PO STA (15:45)
[2021-06-29] MEDS: ceFAZolin 2,000 MG in 0.9 % Sodium Chloride 100 ML IVPB SCH ×3 (05:58→20:29)
[2021-06-29] MEDS: *HR* Enoxaparin 40 MG/0.4 ML SYRINGE SQ SCH (06:00)
[2021-06-29] MEDS: Insulin LISPRO 300 UNITS/3 ML VIAL SUBQ SCH ×4 (08:59→20:27)
[2021-06-29] MEDS: Lisinopril-HCTZ 20-12.5mg TABLET PO SCH (09:00)
[2021-06-29] MEDS: Gabapentin 400 MG CAPSULE PO SCH ×2 (09:00→20:29)
[2021-06-29] MEDS: metroNIDAZOLE 500 MG TABLET PO SCH ×3 (09:00→20:29)
[2021-06-29] MEDS: Metoprolol XL (24 HR) Succ 50 MG TAB.ER.24H PO SCH (09:00)
[2021-06-29] MEDS: ALPRAZolam 1 MG TABLET PO SCH ×3 (09:00→20:29)
[2021-06-29] MEDS ORDERED: *HR* OxyCODONE/APAP 5/325 TABLET PO PRN (16:11)
[2021-06-29] MEDS ORDERED: *HR* OxyCODONE/APAP 10/325 TABLET PO PRN (16:11)
[2021-06-30] MEDS: ceFAZolin 2,000 MG in 0.9 % Sodium Chloride 100 ML IVPB SCH (05:48)
[2021-06-30] MEDS: *HR* Enoxaparin 40 MG/0.4 ML SYRINGE SQ SCH (05:48)
[2021-06-30 07:34] VITALS: BP 111/75; PULSE 65; TEMP 98; O2SAT 93
[2021-06-30] MEDS: metroNIDAZOLE 500 MG TABLET PO SCH (09:32)
[2021-06-30] MEDS: ALPRAZolam 1 MG TABLET PO SCH (09:32)
[2021-06-30] MEDS: Metoprolol XL (24 HR) Succ 50 MG TAB.ER.24H PO SCH (09:32)
[2021-06-30] MEDS: Lisinopril-HCTZ 20-12.5mg TABLET PO SCH (09:32)
[2021-06-30] MEDS: Gabapentin 400 MG CAPSULE PO SCH (09:32)
[2021-06-30] MEDS: Insulin LISPRO 300 UNITS/3 ML VIAL SUBQ SCH (09:33)
== END 2021-06-30 11:29 | disposition home health service (06) | DRG 638 ==
LOC: EMEROOARM 09:09 → 4WAOSI 09:09 → SUATTDRO 15:44 → 4WAOSI 16:49 → SUATTDRO 06-26 14:17
PROVIDERS: ADMIT Internal Medicine; ATTEND Student in an Organized Health Care Education/Training Program

== ENCOUNTER 2021-11-22 11:55 | Inpatient (IN) ==
[2021-11-22] MEDS ORDERED: CeFAZolin Syr 2,000MG/20 ML 2,000 MG/20 ML SYRINGE IVPB ONE (12:30)
[2021-11-22] MEDS ORDERED: *HR* Propofol 200 MG/20 ML VIAL IVP ONE ×2 (13:13→19:20)
[2021-11-22] MEDS ORDERED: *HR* FentaNYL (PF) 100 MCG/2 ML VIAL ONE (13:13)
[2021-11-22] MEDS ORDERED: *HR* Midazolam HCl 2 MG/2 ML VIAL ONE (13:13)
[2021-11-22] MEDS ORDERED: Ondansetron 4 MG/2 ML VIAL ONE (13:13)
[2021-11-22] MEDS ORDERED: *HR* Rocuronium Bromide 50 MG/5 ML VIAL ONE (13:13)
[2021-11-22] MEDS ORDERED: *HR* Magnesium Sulfate 1 GM/2 ML VIAL ONE ×2 (13:14→13:22)
[2021-11-22] MEDS ORDERED: Ketamine HCL *QUVA* 50mg (1mL) SYRINGE ONE (13:14)
[2021-11-22] MEDS: Ringers Solution, Lactated 1,000 ML IVC SCH ×2 (13:15→19:00)
[2021-11-22] MEDS ORDERED: *HR* Phenylephrine 10 MG/ML VIAL ONE (13:25)
[2021-11-22] MEDS ORDERED: *HR* Remifentanil 1 MG VIAL IVP ONE ×3 (13:30→18:55)
[2021-11-22] MEDS ORDERED: Protamine Sulfate 50 MG/5 ML VIAL IVP ONE (13:47)
[2021-11-22] MEDS ORDERED: Heparin 1,000 UNITS/500 mL 1,000 ML ONE (13:47)
[2021-11-22] MEDS ORDERED: Ondansetron 4 MG/2 ML VIAL IVP PRN ×2 (13:53→22:59)
[2021-11-22] MEDS ORDERED: *HR* OxyCODONE Immed Rel 5 MG TABLET PO PRN (13:53)
[2021-11-22] MEDS ORDERED: ceFAZolin 1,000 MG, Sodium Chloride IRRigation 1,000 ML IR ONE (13:55)
[2021-11-22] MEDS ORDERED: *HR* Heparin 5,000 UNIT/ML VIAL ONE ×2 (15:20→17:34)
[2021-11-22] MEDS ORDERED: Sugammadex Sodium 200 MG/2 ML VIAL IV ONE (19:14)
[2021-11-22] MEDS ORDERED: Lidocaine -MPF 2% 5 ML VIAL ONE (19:25)
[2021-11-22] MEDS ORDERED: *HR* HYDROMORPHONE 2 MG/ML VIAL ONE (19:38)
[2021-11-22] MEDS: *HR* HYDROmorphone PF 0.5 MG/0.5 ML SYRINGE IVP PRN ×2 (20:30→20:51)
[2021-11-22] MEDS ORDERED: *HR* Labetalol 20 MG/4 ML SYRINGE IVP ONE (20:35)
[2021-11-22] MEDS: *HR* Labetalol 20 MG/4 ML SYRINGE IVP PRN ×3 (20:35→20:59)
[2021-11-22] MEDS ORDERED: Albuterol 2.5 MG/3 ML NEBULIZER IH PRN (20:37)
[2021-11-22] MEDS ORDERED: *HR* Meperidine 25 MG/ML SYRINGE IVP PRN (20:37)
[2021-11-22] MEDS ORDERED: Promethazine 6.25 MG in Water for inj. (sterile) 20 ML IVPB PRN (20:42)
[2021-11-22] MEDS ORDERED: Dextrose Gel 15 GM/37.5 ML TUBE PO PRN ×2 (22:59)
[2021-11-22] MEDS ORDERED: *HR* Labetalol 20 MG/4 ML SYRINGE IVP PRN (22:59)
[2021-11-22] MEDS ORDERED: Acetaminophen 325 MG TABLET PO PRN (22:59)
[2021-11-22] MEDS ORDERED: Naloxone 0.4 MG/ML INJ IVP PRN (22:59)
[2021-11-22] MEDS ORDERED: *HR* Dextrose 50 % in Water (Syg) 50 ML SYRINGE IVP PRN (22:59)
[2021-11-22] MEDS ORDERED: D5% in Water 1,000 ML IVC PRN (22:59)
[2021-11-22] MEDS: Insulin LISPRO 300 UNITS/3 ML VIAL SUBQ SCH (23:27)
[2021-11-22] MEDS: Gabapentin 400 MG CAPSULE PO SCH (23:28)
[2021-11-22] MEDS: *HR* HYDROcodone/Acet 5/325 mg TABLET PO PRN (23:28)
[2021-11-22] MEDS: ALPRAZolam 1 MG TABLET PO SCH (23:28)
[2021-11-23] MEDS: Insulin DETEMIR 100 UNIT/ML X5UNITS SUBQ SCH ×3 (01:00→20:13)
[2021-11-23] MEDS: CeFAZolin 2 GM/120 ML BAG IVPB SCH ×3 (01:00→15:20)
[2021-11-23 03:11] LABS: BUN/Creatinine Ratio 12 (6-26); Blood Urea Nitrogen 15 mg/dL (6-20); Calcium 7.8 mg/dL (8.6-10.3); Carbon Dioxide 28 mEq/L (23-29); Chloride 102 mEq/L (98-107); Glucose 228 mg/dL (70-105); Osmolality,Calculated 288 (280-300); Potassium 4.1 mEq/L (3.5-5.1); Sodium 135 mEq/L (136-145); eGFR For African Americans > 60 (> 60); eGFR For Non-African Americans > 60 (> 60)
[2021-11-23 03:13] LABS: Basophils % 0.3 %; Eosinophils # 0.1 K/mcL (0.0-0.6); Eosinophils % 1.4 %; Hematocrit 32.5 % (37.5-50.1); Immature Granulocytes % 0.4 % (0-4); Lymphocytes # 1.7 K/mcL (0.6-4.6); Lymphocytes % 17.8 %; Mean Corpuscular HGB Conc 33.2 g/dL (31.6-35.5); Mean Corpuscular Hemoglobin 30.9 pg (28.0-33.3); Mean Corpuscular Volume 93.1 fL (83.0-100.0); Monocytes # 0.9 K/mcL (0.0-1.3); Monocytes % 9.2 %; Neutrophils # 6.7 K/mcL (1.6-8.9); Platelet Count 222 K/mcL (140-400); Red Blood Count 3.49 M/mcL (4.19-5.50); Red Cell Distribution Width 12.7 % (11.5-14.5); Segmented Neutrophils % 70.9 %; White Blood Count 9.4 K/mcL (4.3-11.1)
[2021-11-23 03:58] LABS: Hemoglobin 10.8 g/dL (12.9-16.9)
[2021-11-23] MEDS: *HR* OxyCODONE Immed Rel 5 MG TABLET PO PRN ×3 (04:22→15:20)
[2021-11-23] MEDS: ALPRAZolam 1 MG TABLET PO SCH ×3 (08:20→20:13)
[2021-11-23] MEDS: Lisinopril-HCTZ 20-12.5mg TABLET PO SCH (08:21)
[2021-11-23] MEDS: Gabapentin 400 MG CAPSULE PO SCH ×2 (08:22→20:13)
[2021-11-23] MEDS: Aspirin Enteric Coated 81 MG Tablet PO SCH (08:22)
[2021-11-23] MEDS: Metoprolol XL (24 HR) Succ 50 MG TAB.ER.24H PO SCH (08:22)
[2021-11-23] MEDS: *HR* HYDROcodone/Acet 5/325 mg TABLET PO PRN ×2 (13:00→20:13)
[2021-11-23 17:40] LABS: C-Reactive Protein 53 mg/L (Less than 10)
[2021-11-23] MEDS: Insulin LISPRO 300 UNITS/3 ML VIAL SUBQ SCH (20:12)
[2021-11-24] MEDS: *HR* OxyCODONE Immed Rel 5 MG TABLET PO PRN ×3 (04:49→18:14)
[2021-11-24] MEDS: ALPRAZolam 1 MG TABLET PO SCH ×3 (08:29→20:37)
[2021-11-24] MEDS: Insulin DETEMIR 100 UNIT/ML X5UNITS SUBQ SCH (08:29)
[2021-11-24] MEDS: Aspirin Enteric Coated 81 MG Tablet PO SCH (08:30)
[2021-11-24] MEDS: *HR* HYDROcodone/Acet 5/325 mg TABLET PO PRN ×2 (08:30→14:58)
[2021-11-24] MEDS: Gabapentin 400 MG CAPSULE PO SCH ×2 (08:30→20:37)
[2021-11-24] MEDS: Lisinopril-HCTZ 20-12.5mg TABLET PO SCH (08:30)
[2021-11-24] MEDS: Metoprolol XL (24 HR) Succ 50 MG TAB.ER.24H PO SCH (08:31)
[2021-11-24] MEDS ORDERED: *HR* OxyCODONE/APAP 5/325 TABLET PO PRN (20:35)
[2021-11-24] MEDS ORDERED: *HR* OxyCODONE/APAP 7.5/325 TABLET PO PRN (20:35)
[2021-11-24] MEDS: Insulin LISPRO 300 UNITS/3 ML VIAL SUBQ SCH (20:38)
[2021-11-24] MEDS: *HR* OxyCODONE/APAP 10/325 TABLET PO PRN (23:31)
[2021-11-25] MEDS: *HR* OxyCODONE/APAP 10/325 TABLET PO PRN ×4 (04:25→20:08)
[2021-11-25] MEDS: Gabapentin 400 MG CAPSULE PO SCH ×2 (08:56→20:08)
[2021-11-25] MEDS: Lisinopril-HCTZ 20-12.5mg TABLET PO SCH (08:56)
[2021-11-25] MEDS: Aspirin Enteric Coated 81 MG Tablet PO SCH (08:57)
[2021-11-25] MEDS: ALPRAZolam 1 MG TABLET PO SCH ×3 (08:57→20:08)
[2021-11-25] MEDS: Metoprolol XL (24 HR) Succ 50 MG TAB.ER.24H PO SCH (08:57)
[2021-11-25] MEDS: Insulin LISPRO 300 UNITS/3 ML VIAL SUBQ SCH ×4 (08:58→20:08)
[2021-11-26] MEDS: *HR* OxyCODONE/APAP 10/325 TABLET PO PRN ×4 (03:10→21:49)
[2021-11-26] MEDS: Gabapentin 400 MG CAPSULE PO SCH ×2 (08:08→21:50)
[2021-11-26] MEDS: Aspirin Enteric Coated 81 MG Tablet PO SCH (08:08)
[2021-11-26] MEDS: ALPRAZolam 1 MG TABLET PO SCH ×3 (08:08→21:50)
[2021-11-26] MEDS: Metoprolol XL (24 HR) Succ 50 MG TAB.ER.24H PO SCH (08:09)
[2021-11-26] MEDS: Lisinopril-HCTZ 20-12.5mg TABLET PO SCH (08:09)
[2021-11-26] MEDS: Insulin LISPRO 300 UNITS/3 ML VIAL SUBQ SCH ×3 (08:11→21:50)
[2021-11-26] MEDS ORDERED: *HR* FentaNYL (PF) 100 MCG/2 ML VIAL IVP PRN ×2 (16:30→20:46)
[2021-11-26] MEDS ORDERED: CeFAZolin Syr 2,000MG/20 ML 2,000 MG/20 ML SYRINGE IVPB ONE (16:37)
[2021-11-26] MEDS ORDERED: Ringers Solution, Lactated 1,000 ML IVC SCH ×2 (16:45→20:46)
[2021-11-26] MEDS ORDERED: Ondansetron 4 MG/2 ML VIAL ONE (16:57)
[2021-11-26] MEDS ORDERED: Lidocaine -MPF 2% 5 ML VIAL ONE (16:57)
[2021-11-26] MEDS ORDERED: *HR* Propofol 200 MG/20 ML VIAL IVP ONE (18:36)
[2021-11-26] MEDS ORDERED: Bupivacaine/Clonidine Syringe 20 ML, Syringe LUER-LOK 1 EACH TP ONE (19:00)
[2021-11-26] MEDS ORDERED: EPHEDrine 50 MG/ML VIAL ONE (19:10)
[2021-11-26] MEDS ORDERED: Naloxone 0.4 MG/ML INJ IVP PRN (20:46)
[2021-11-26] MEDS ORDERED: Dextrose Gel 15 GM/37.5 ML TUBE PO PRN ×2 (20:46)
[2021-11-26] MEDS ORDERED: Ondansetron 4 MG/2 ML VIAL IVP PRN (20:46)
[2021-11-26] MEDS ORDERED: *HR* OxyCODONE/APAP 5/325 TABLET PO PRN (20:46)
[2021-11-26] MEDS ORDERED: D5% in Water 1,000 ML IVC PRN (20:46)
[2021-11-26] MEDS ORDERED: *HR* Dextrose 50 % in Water (Syg) 50 ML SYRINGE IVP PRN (20:46)
[2021-11-26] MEDS ORDERED: *HR* Labetalol 20 MG/4 ML SYRINGE IVP PRN (20:46)
[2021-11-26] MEDS ORDERED: *HR* OxyCODONE/APAP 7.5/325 TABLET PO PRN (20:46)
[2021-11-27] MEDS: Lisinopril-HCTZ 20-12.5mg TABLET PO SCH (07:41)
[2021-11-27] MEDS: Aspirin Enteric Coated 81 MG Tablet PO SCH (07:41)
[2021-11-27] MEDS: ALPRAZolam 1 MG TABLET PO SCH ×3 (07:42→20:47)
[2021-11-27] MEDS: Gabapentin 400 MG CAPSULE PO SCH ×2 (07:42→20:47)
[2021-11-27] MEDS: Metoprolol XL (24 HR) Succ 50 MG TAB.ER.24H PO SCH (07:42)
[2021-11-27] MEDS: Insulin LISPRO 300 UNITS/3 ML VIAL SUBQ SCH ×4 (07:46→20:47)
[2021-11-27] MEDS: *HR* OxyCODONE/APAP 10/325 TABLET PO PRN ×4 (07:53→21:29)
[2021-11-28] MEDS: Lisinopril-HCTZ 20-12.5mg TABLET PO SCH (08:16)
[2021-11-28] MEDS: *HR* OxyCODONE/APAP 10/325 TABLET PO PRN (08:16)
[2021-11-28] MEDS: Gabapentin 400 MG CAPSULE PO SCH (08:17)
[2021-11-28] MEDS: Metoprolol XL (24 HR) Succ 50 MG TAB.ER.24H PO SCH (08:17)
[2021-11-28] MEDS: Aspirin Enteric Coated 81 MG Tablet PO SCH (08:17)
[2021-11-28] MEDS: Insulin LISPRO 300 UNITS/3 ML VIAL SUBQ SCH ×2 (08:17→11:50)
[2021-11-28] MEDS: ALPRAZolam 1 MG TABLET PO SCH ×2 (08:17→15:16)
[2021-11-28 14:34] VITALS: BP 111/71; PULSE 62; TEMP 98.7; O2SAT 93
== END 2021-11-28 16:12 | disposition home or self-care (01) | DRG 253 ==
LOC: SAMDAY 11:55 → 2NNU 22:41 → 4WAOSI 11-24 12:20
PROVIDERS: ADMIT Internal Medicine; ATTEND Surgery Vascular Surgery